=== PATIENT | male | born 1935 | race Caucasian/White ===

== ENCOUNTER → 2017-02-26 | Outpatient (CLI) | payer MEDICARE ==
[2017-02-26 08:56] LABS: Blood Urea Nitrogen 16 mg/dL (9-20); Non-African American GFR(MDRD) >60 (>60 ml/min/1.73 sqM)
--- NOTE | 2017-02-26 11:44 | CT ---
EXAMINATION TYPE: CT chest w con DATE OF EXAM: 02/26/2017 9:18 AM COMPARISON: NONE HISTORY: 81-year-old male with abnormal lung findings TECHNIQUE: Contiguous axial scanning of the chest after the administration of 100 mL of Omnipaque 300 . Coronal/sagittal reconstructions performed. CT DLP: 411.6mGycm. Automatic exposure control utilized for a dose reduction. FINDINGS: The heart is upper limits of normal in size without pericardial effusion. Extensive coronary vessel c alcifications are present and are a marker for coronary artery disease. There is tortuosity of the thoracic aorta with ectasia of the ascending aorta 3.8 cm. Variant direct takeoff of the left vertebral artery directly from the aortic arch with atherosclerotic changes mildl y narrowing the origin of the left subclavian artery. There is aneurysm of the upper descending thora cic aorta at 3.7 cm and ectasia of the distal descending thoracic aorta at 2.8 cm. Large caliber to the main right and left pulmonary arteries at 2.8 and 2.5 cm, respectively. Scattered nonenlarged couple borderline-enlarged mediastinal lymph nodes measure up to 1 cm in the le ft tracheobronchial angle and 1.2 cm subcarinal region and are probably reactive/post inflammatory. A calcified right tracheobronchial angle and right hilar lymph node compatible with prior granulomatou s disease. Visualized lungs show moderate centrilobular emphysema. Chronic appearing interstitial changes in the subpleural regions of the mid and lower lungs. No consolidation or pleural effusion. Some patchy are as of groundglass and subpleural microcystic change are also noted. No consolidation or pleural effus ion. Visualized upper abdomen shows multiple hypodense lesions within the kidneys measuring up to 4.2 cm o n the right suggestive of cysts. 9 mm gallbladder stone. The gallbladder is collapsed. There appears to be a AAA measuring at least 3.9 cm and only partially visualized. Aneurysm could easily be larger. Bones: No osseous destructive process. IMPRESSION: 1. 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 There are additional subpleural interstitial changes in the mid and lower lungs suggesting a component of interstitial fibrosis as well. 2. Pulmonary arterial hypertension, CAD, and prior granulomatous disease. 3. Ectatic and tortuous thoracic aorta but without aneurysm of the upper descending thoracic aorta at 3.8 cm. 4. Additional partially visualized AAA measuring at least 4.2 cm. This aneurysm could easily be large r. Appropriate follow-up and further evaluation is recommended. 5. Cholelithiasis and renal cysts measuring up to 4.2 cm.
== END | disposition home or self-care (01) ==
LOC: RADCTMAIN 07:51
PROVIDERS: ATTEND Internal Medicine
DX: J43.9 Emphysema, unspecified (principal); I25.10 Atherosclerotic heart disease of native coronary artery without angina pectoris; I27.2 Other secondary pulmonary hypertension
CPT/HCPCS: 82565; 84520; 71260; 36415; Q9967

== ENCOUNTER → 2017-02-27 | Outpatient (CLI) | payer MEDICARE ==
--- NOTE | 2017-02-27 23:00 | MR ---
EXAMINATION TYPE: MR brain wo con DATE OF EXAM: 02/27/2017 7:10 PM COMPARISON: 02/18/2016 HISTORY: 81-year-old male with forgetfulness, other amnesia. TECHNIQUE: Multiplanar, multisequence images of the brain and brainstem were acquired without IV con trast. Diffusion weighted imaging is performed. FINDINGS: No evidence for acute infarction, hemorrhage, mass, mass effect, midline shift, herniation, effacemen t of basal cisterns, or extra-axial fluid collection. There is no hydrocephalus. There is moderate generalized supratentorial volume loss with secondary to lcal prominence. Major intracranial flow voids are intact. T2/FLAIR weighted sequences continues to show moderate scattered burden of T2 bright white matter catia nge with approximately 30 subcortical, periventricular, deep white matter foci in the left cerebral h emisphere and slightly less on the right. Midline structures demonstrate normal morphology. The craniocervical junction is normal. Stable 7 mm round hyperintense focus within the left parietal calvarium. This could represent a promi nent arachnoid granulation or a small hemangioma. There is moderate mucosal thickening within the ethmoid air cells and frontal sinuses and mild within the maxillary sinuses. Leftward nasal septal deviation. Globes are intact. IMPRESSION: 1. Similar moderate generalized atrophy and moderate scattered burden of T2 bright white matter saul e. This is nonspecific but likely relates to chronic small vessel ischemic disease. 2. No acute intracranial abnormality seen. 3. Moderate chronic paranasal sinus disease.
== END | disposition home or self-care (01) ==
LOC: RADMRIMAIN 18:17
PROVIDERS: ATTEND Internal Medicine
DX: G31.9 Degenerative disease of nervous system, unspecified (principal); R90.82 White matter disease, unspecified
CPT/HCPCS: 70551

== ENCOUNTER → 2017-03-22 | Outpatient (CLI) | payer MEDICARE ==
--- NOTE | 2017-03-22 11:36 | US ---
EXAMINATION TYPE: US abdomen complete DATE OF EXAM: 03/22/2017 9:02 AM COMPARISON: NONE CLINICAL HISTORY: 81-year-old male K80.20 Calculus of Gallbladder. TECHNIQUE: Multiple sonographic images of the abdomen are obtained. FINDINGS: Liver Length: 13.1 cm Gallbladder Wall: 0.3 cm CBD: 0.5 cm Spleen: 12.7 cm Right Kidney: 8.8 x 3.9 x 4.2 cm Left Kidney: 11.2 x 5.1 x 6.7 cm Pancreas: not seen due to bowel gas Liver: limited left lobe due to bowel gas and intercostal imaging appears wnl Gallbladder: Single mobile 1.1 cm calculus seen within. No abnormal bladder distention, wall thickeni ng, or pericholecystic fluid. Evidence for sonographic Simmons's sign: no CBD: wnl Spleen: wnl Right Kidney: No hydronephrosis. Asymmetrically smaller in size with a 4.7cm simple cyst seen medial ly Left Kidney: No hydronephrosis. There is a 2.0 cm cyst at the midpole. Just below also within the mid pole, there is a cortically based 1 cm hypoechoic lesion that shows internal echoes. Upper IVC: wnl Abd Aorta: There is a 6 cm long segment of infrarenal abdominal aortic aneurysm with a caliber up to 5.4 cm. Some crescentic plaque is noted within. The right common iliac artery is ectatic at 1.8 cm. IMPRESSION: 1. Cholelithiasis without acute cholecystitis. 2. A 5.4 cm AAA for which vascular surgery consultation is recommended. 3. A simple cyst within each kidney measuring up to 4.7 cm. However, there is a 1 cm hypoechoic lesio n in the left midpole which is indeterminate. A complicated cyst is possible. Recommend 6 month follo w-up renal ultrasound to exclude an early small solid mass.
== END | disposition home or self-care (01) ==
LOC: RADUSWWP 08:19
PROVIDERS: ATTEND Internal Medicine
DX: K80.20 Calculus of gallbladder without cholecystitis without obstruction (principal); N28.1 Cyst of kidney, acquired; N28.9 Disorder of kidney and ureter, unspecified; Z98.890 Other specified postprocedural states
CPT/HCPCS: 76700

== ENCOUNTER → 2017-05-10 | Outpatient (CLI) | payer MEDICARE ==
[2017-05-10 14:27] LABS: Basophils % (A) 0 %; CH 30.5; CHCM 34.3; Eosinophils # (A) 0.2 k/uL (0-0.7); Eosinophils % (A) 2 %; HCT 44.1 % (39.0-53.0); HDW 2.53; HGB 15.3 gm/dL (13.0-17.5); Luc # (Auto) 0.18; Luc % (Auto) 3; Lymphocytes # (A) 1.7 k/uL (1.0-4.8); Lymphocytes % (A) 24 %; MCH 30.9 pg (25.0-35.0); MCHC 34.6 g/dL (31.0-37.0); MCV 89.2 fL (80.0-100.0); Mean Platelet Volume 7.5; Monocytes # (A) 0.5 k/uL (0-1.0); Monocytes % (A) 7 %; Neutrophils # (A) 4.5 k/uL (1.3-7.7); Neutrophils % (A) 64 %; RBC 4.94 m/uL (4.30-5.90); RDW 13.8 % (11.5-15.5); WBC 7.1 k/uL (3.8-10.6); WBC (Perox) 7.04
[2017-05-10 14:29] LABS: INR 1.1 (<1.1); Partial Thromboplastin Time 25.9 sec (22.0-30.0); Prothrombin Time 11.1 sec (9.0-12.0)
== END ==
LOC: LABWHC1 13:31
PROVIDERS: ATTEND Internal Medicine
DX: T81.89XD Other complications of procedures, not elsewhere classified, subsequent encounter (principal)
CPT/HCPCS: 36415; 85025; 85610; 85730

== ENCOUNTER 2017-05-19 12:55 | Observation (INO) | payer MEDICARE ==
--- NOTE | 2017-05-19 13:18 | ED ---
General Adult HPI - General Chief complaint: Chest Pain Stated complaint: Chest Pain Time Seen by Provider: 05/19/17 13:10 Source: patient, RN notes reviewed, old records reviewed Mode of arrival: wheelchair Limitations: no limitations - History of Present Illness Initial comments: This is a 82-year-old male to the ER for evaluation. Patient presents today for reevaluation of chest pain, anterior having is having a sinus chest. No shows retinal diaphoresis. Patient has high blood pressure history and history of smoking. No prior history of heart disease heart catheterization about 5 years ago which he states had no intervention. Patient was intravaginal sick contacts no cough congestion or fevers. - Related Data Home Medications Medication Instructions Recorded Confirmed Aspirin EC [Ecotrin Low Dose] 81 mg PO DAILY 05/19/17 05/19/17 Finasteride [Proscar] 5 mg PO DAILY 05/19/17 05/19/17 Lisinopril [Zestril] 5 mg PO BID 05/19/17 05/19/17 Memantine [Namenda] 10 mg PO BID 05/19/17 05/19/17 Omeprazole 20 mg PO DAILY 05/19/17 05/19/17 Simvastatin [Zocor] 40 mg PO HS 05/19/17 05/19/17 Tamsulosin HCl [Flomax] 0.4 mg PO DAILY 05/19/17 05/19/17 Allergies Allergy/AdvReac Type Severity Reaction Status Date / Time No Known Allergies Allergy Verified 05/19/17 13:38 Review of Systems ROS Statement: Those systems with pertinent positive or pertinent negative responses have been documented in the HPI. ROS Other: All systems not noted in ROS Statement are negative. Past Medical History Past Medical History: Cancer, Hyperlipidemia, Hypertension History of Any Multi-Drug Resistant Organisms: None Reported Past Surgical History: Bowel Resection, Prostate Surgery Past Psychological History: No Psychological Hx Reported Smoking Status: Current every day smoker Past Alcohol Use History: Daily Past Drug Use History: None Reported General Exam Limitations: no limitations General appearance: alert, in no apparent distress Head exam: Present: atraumatic, normocephalic, normal inspection Eye exam: Present: normal appearance, PERRL, EOMI. Absent: scleral icterus, conjunctival injection, periorbital swelling ENT exam: Present: normal exam, mucous membranes moist Neck exam: Present: normal inspection. Absent: tenderness, meningismus, lymphadenopathy Respiratory exam: Present: normal lung sounds bilaterally. Absent: respiratory distress, wheezes, rales, rhonchi, stridor Cardiovascular Exam: Present: regular rate, normal rhythm, normal heart sounds. Absent: systolic murmur, diastolic murmur, rubs, gallop, clicks GI/Abdominal exam: Present: soft, normal bowel sounds. Absent: distended, tenderness, guarding, rebound, rigid Extremities exam: Present: normal inspection, full ROM, normal capillary refill. Absent: tenderness, pedal edema, joint swelling, calf tenderness Back exam: Present: normal inspection Neurological exam: Present: alert, oriented X3, CN II-XII intact Psychiatric exam: Present: normal affect, normal mood Skin exam: Present: warm, dry, intact, normal color. Absent: rash Course Vital Signs 05/19/17 05/19/17 05/19/17 13:04 13:40 14:09 Temperature 98.0 F Pulse Rate 64 59 L 61 Respiratory 20 18 18 Rate Blood Pressure 123/82 130/73 130/75 O2 Sat by Pulse 99 97 94 L Oximetry - Reevaluation(s) Reevaluation #1: 05/19/17 14:47 Patient remains a chest pain at this time EKG Findings - EKG Comments: EKG Findings:: EKG shows sinus bradycardia rate 56, PA 136, QRS 156, QTC 420 Medical Decision Making - Medical Decision Making 82 mailed ER for evaluation of chest pain. Anterior chest pain and heaviness. Occurred while activity, initially up yesterday that resolved and has persisted today. No nausea vomiting diarrhea no fever diaphoresis. Patient still chest pain this time, patient scheduled for surgery for abdominal aneurysm and cardiac clearance. Patient is no prior episodes of chest pain or cardiac evaluation. Patient does have high blood pressure and high cholesterol, does smoke, patient is initial EKG and troponin are negative, will be admitted for cardiac observation - Lab Data Result diagrams: 05/19/17 13:25 05/19/17 13:25 Lab Results 05/19/17 05/19/17 05/19/17 Range/Units 13:25 13:25 13:25 WBC 7.3 (3.8-10.6) k/uL RBC 4.86 (4.30-5.90) m/uL Hgb 15.4 (13.0-17.5) gm/dL Hct 44.5 (39.0-53.0) % MCV 91.4 (80.0-100.0) fL MCH 31.6 (25.0-35.0) pg MCHC 34.6 (31.0-37.0) g/dL RDW 15.2 (11.5-15.5) % Plt Count 161 (150-450) k/uL Neutrophils % 65 % Lymphocytes % 24 % Monocytes % 6 % Eosinophils % 3 % Basophils % 1 % Neutrophils # 4.7 (1.3-7.7) k/uL Lymphocytes # 1.8 (1.0-4.8) k/uL Monocytes # 0.4 (0-1.0) k/uL Eosinophils # 0.2 (0-0.7) k/uL Basophils # 0.1 (0-0.2) k/uL PT (9.0-12.0) sec INR (<1.2) APTT (22.0-30.0) sec Sodium 141 (137-145) mmol/L Potassium 4.4 (3.5-5.1) mmol/L Chloride 105 (98-107) mmol/L Carbon Dioxide 24 (22-30) mmol/L Anion Gap 12 mmol/L BUN 11 (9-20) mg/dL Creatinine 0.83 (0.66-1.25) mg/dL Est GFR (MDRD) Af Amer >60 (>60 ml/min/1.73 sqM) Est GFR (MDRD) Non-Af >60 (>60 ml/min/1.73 sqM) Glucose 77 (74-99) mg/dL Calcium 9.4 (8.4-10.2) mg/dL Magnesium 1.8 (1.6-2.3) mg/dL Total Bilirubin 0.4 (0.2-1.3) mg/dL AST 25 (17-59) U/L ALT 31 (21-72) U/L Alkaline Phosphatase 69 (38-126) U/L Total Creatine Kinase 74 (55-170) U/L CK-MB (CK-2) 2.5 H* (0.0-2.4) ng/mL CK-MB (CK-2) Rel Index 3.4 Troponin I <0.012 (0.000-0.034) ng/mL NT-Pro-B Natriuret Pep pg/mL Total Protein 7.3 (6.3-8.2) g/dL Albumin 4.1 (3.5-5.0) g/dL Lipase 100 (23-300) U/L 05/19/17 05/19/17 Range/Units 13:25 13:25 WBC (3.8-10.6) k/uL RBC (4.30-5.90) m/uL Hgb (13.0-17.5) gm/dL Hct (39.0-53.0) % MCV (80.0-100.0) fL MCH (25.0-35.0) pg MCHC (31.0-37.0) g/dL RDW (11.5-15.5) % Plt Count (150-450) k/uL Neutrophils % % Lymphocytes % % Monocytes % % Eosinophils % % Basophils % % Neutrophils # (1.3-7.7) k/uL Lymphocytes # (1.0-4.8) k/uL Monocytes # (0-1.0) k/uL Eosinophils # (0-0.7) k/uL Basophils # (0-0.2) k/uL PT 10.9 (9.0-12.0) sec INR 1.1 (<1.2) APTT 24.6 (22.0-30.0) sec Sodium (137-145) mmol/L Potassium (3.5-5.1) mmol/L Chloride (98-107) mmol/L Carbon Dioxide (22-30) mmol/L Anion Gap mmol/L BUN (9-20) mg/dL Creatinine (0.66-1.25) mg/dL Est GFR (MDRD) Af Amer (>60 ml/min/1.73 sqM) Est GFR (MDRD) Non-Af (>60 ml/min/1.73 sqM) Glucose (74-99) mg/dL Calcium (8.4-10.2) mg/dL Magnesium (1.6-2.3) mg/dL Total Bilirubin (0.2-1.3) mg/dL AST (17-59) U/L ALT (21-72) U/L Alkaline Phosphatase (38-126) U/L Total Creatine Kinase (55-170) U/L CK-MB (CK-2) (0.0-2.4) ng/mL CK-MB (CK-2) Rel Index Troponin I (0.000-0.034) ng/mL NT-Pro-B Natriuret Pep 78 pg/mL Total Protein (6.3-8.2) g/dL Albumin (3.5-5.0) g/dL Lipase (23-300) U/L - Radiology Data Radiology results: report reviewed (Chest x-ray is negative for acute disease), image reviewed Critical Care Time Critical Care Time: Yes Total Critical Care Time: 31 Disposition Clinical Impression: Chest pain Disposition: ADMITTED IP TO THIS HOSP Condition: Undetermined Instructions: Chest Pain (ED) Referrals: Percy Caldwell MD [Primary Care Provider] - 1-2 days
[2017-05-19 13:36] LABS: Basophils # (A) 0.1 k/uL (0-0.2); Basophils % (A) 1 %; CH 31.6; CHCM 34.7; Eosinophils # (A) 0.2 k/uL (0-0.7); Eosinophils % (A) 3 %; HCT 44.5 % (39.0-53.0); HDW 2.54; HGB 15.4 gm/dL (13.0-17.5); Luc # (Auto) 0.15; Luc % (Auto) 2; Lymphocytes # (A) 1.8 k/uL (1.0-4.8); Lymphocytes % (A) 24 %; MCH 31.6 pg (25.0-35.0); MCHC 34.6 g/dL (31.0-37.0); MCV 91.4 fL (80.0-100.0); Mean Platelet Volume 8.1; Monocytes # (A) 0.4 k/uL (0-1.0); Monocytes % (A) 6 %; Neutrophils # (A) 4.7 k/uL (1.3-7.7); Neutrophils % (A) 65 %; RBC 4.86 m/uL (4.30-5.90); RDW 15.2 % (11.5-15.5); WBC 7.3 k/uL (3.8-10.6); WBC (Perox) 6.65
[2017-05-19 13:46] LABS: ALT 31 U/L (21-72); AST 25 U/L (17-59); Alkaline Phosphatase 69 U/L (38-126); Anion Gap 12 mmol/L; Blood Urea Nitrogen 11 mg/dL (9-20); Calcium 9.4 mg/dL (8.4-10.2); Carbon Dioxide 24 mmol/L (22-30); Chloride 105 mmol/L (98-107); Glucose 77 mg/dL (74-99); INR 1.1 (<1.2); Magnesium 1.8 mg/dL (1.6-2.3); Non-African American GFR(MDRD) >60 (>60 ml/min/1.73 sqM); Partial Thromboplastin Time 24.6 sec (22.0-30.0); Potassium 4.4 mmol/L (3.5-5.1); Prothrombin Time 10.9 sec (9.0-12.0); Sodium 141 mmol/L (137-145); Total Bilirubin 0.4 mg/dL (0.2-1.3); Total Protein 7.3 g/dL (6.3-8.2)
[2017-05-19 13:58] LABS: Creatine Kinase 74 U/L (55-170)
--- NOTE | 2017-05-19 14:03 | XR ---
EXAMINATION TYPE: XR chest 2V DATE OF EXAM: 05/19/2017 COMPARISON: NONE HISTORY: Chest pain TECHNIQUE: Frontal and lateral views of the chest are obtained. FINDINGS: There is coarsening of interstitial markings. Heart size is normal. Thoracic aorta is athe romatous. There is no pleural effusion. Bony thorax is intact. There are chest leads. IMPRESSION: Pulmonary fibrosis. No heart failure.
[2017-05-19 14:11] LABS: Troponin I <0.012 ng/mL (0.000-0.034)
[2017-05-19 14:13] LABS: Creatine Kinase MB 2.5 ng/mL (0.0-2.4)
[2017-05-19] MEDS ORDERED: NITROGLYCERIN OINT 1 INCH/GM PACKET TOPICAL STA (14:33)
[2017-05-19] MEDS ORDERED: SODIUM CHLORIDE 0.9% 1,000 ML IV SCH (14:45)
[2017-05-19] MEDS ORDERED: NITROGLYCERIN SL TABS 0.4 MG TAB SUBLINGUAL PRN (14:45)
[2017-05-19] MEDS ORDERED: HEPARIN SODIUM,PORCINE 5,000 UNIT/ML 1 ML VIAL IV PRN (14:45)
[2017-05-19] MEDS ORDERED: HEPARIN SODIUM,PORCINE/D5W PMX 25,000 UNIT in DEXTROSE/WATER 1 500ML.BAG IV SCH (14:45)
[2017-05-19] MEDS ORDERED: HEPARIN SODIUM,PORCINE 5,000 UNIT/ML 1 ML VIAL IV ONE (14:45)
[2017-05-19] MEDS ORDERED: ASPIRIN 81 MG PO STA (14:45)
[2017-05-19] MEDS ORDERED: FINASTERIDE 5 MG TAB PO SCH (21:00)
[2017-05-19] MEDS ORDERED: ATORVASTATIN 20 MG TAB PO SCH (21:00)
[2017-05-19] MEDS ORDERED: LISINOPRIL 5 MG TAB PO SCH (21:00)
[2017-05-19] MEDS ORDERED: MEMANTINE 10 MG TAB PO SCH (21:00)
[2017-05-19 21:31] LABS: Creatine Kinase 62 U/L (55-170)
[2017-05-19 21:44] LABS: Creatine Kinase MB 2.1 ng/mL (0.0-2.4); Troponin I <0.012 ng/mL (0.000-0.034)
[2017-05-20 00:54] VITALS: RESP 18
[2017-05-20 02:36] LABS: Creatine Kinase 49 U/L (55-170)
[2017-05-20 02:49] LABS: Creatine Kinase MB 1.6 ng/mL (0.0-2.4); Troponin I <0.012 ng/mL (0.000-0.034)
[2017-05-20 05:17] VITALS: PULSE 80
[2017-05-20 06:52] LABS: Mean Platelet Volume 7.8
[2017-05-20 07:16] LABS: Cholesterol 117 mg/dL (<200); HDL Cholesterol 42 mg/dL (40-60)
[2017-05-20] MEDS ORDERED: PANTOPRAZOLE 40 MG TABLET PO SCH (07:30)
[2017-05-20 08:22] VITALS: BP 120/46; TEMP 97.8
[2017-05-20] MEDS ORDERED: ASPIRIN 325 MG TAB PO SCH (09:00)
[2017-05-20] MEDS ORDERED: ATORVASTATIN 80 MG TAB PO SCH (09:00)
[2017-05-20] MEDS ORDERED: TAMSULOSIN 0.4 MG CAP.ER.24H PO SCH (09:00)
--- NOTE | 2017-05-20 09:29 | P.CRDCN ---
<Tsering Gill E - Last Filed: 05/20/17 09:20> History of Present Illness Consult date: 05/20/17 Requesting physician: Viki Cleaning Consult reason: chest pain Chief complaint: Chest pain History of present illness: This is an 82-year-old gentleman with history of hypertension, hyperlipidemia, short-term memory loss, nicotine dependence, abdominal aortic aneurysm, who presents to the hospital with symptoms of chest discomfort. History was obtained from both the patient and his . Patient has just returned from a 1700 mile motorcycle a trip, apparently over the past 2-3 days has been experiencing intermittent chest discomfort which the patient describes as an ache in his chest. He denies any associated shortness of breath, no diaphoresis or nausea. He is unsure exactly how long each episode lasts. Patient is scheduled to see a central office repairer at [facility] in early May , they plan on doing surgery on his abdominal aortic aneurysm according to the patient. EKG on admission here shows a sinus bradycardia with a right bundle branch block pattern. Chest x-ray reveals pulmonary fibrosis with no evidence of congestive heart failure. Blood pressure on arrival 123/80 with a heart rate in the 60s, temperature 98.0, 99% on room air. CBC normal. Potassium 4.4 , BUN 11, creatinine 0.8, troponins negative 3. Magnesium 1.8. Cholesterol 117, triglycerides 68, LDL 61, HDL 42. Patient is currently on IV heparin, he is pain-free at this time. Past Medical History Past Medical History: Cancer, Hyperlipidemia, Hypertension, Sleep Apnea/CPAP/ BIPAP Additional Past Medical History / Comment(s): wears CPAP at night History of Any Multi-Drug Resistant Organisms: None Reported Past Surgical History: Bowel Resection, Prostate Surgery Past Psychological History: No Psychological Hx Reported Smoking Status: Current every day smoker Past Alcohol Use History: Daily Past Drug Use History: None Reported - Past Family History Father History Unknown: Yes Family Medical History: CVA/TIA Mother Family Medical History: CVA/TIA Medications and Allergies Home Medications Medication Instructions Recorded Confirmed Type Aspirin EC [Ecotrin Low Dose] 81 mg PO DAILY 05/19/17 05/19/17 History Finasteride [Proscar] 5 mg PO DAILY 05/19/17 05/19/17 History Lisinopril [Zestril] 5 mg PO BID 05/19/17 05/19/17 History Memantine [Namenda] 10 mg PO BID 05/19/17 05/19/17 History Omeprazole 20 mg PO DAILY 05/19/17 05/19/17 History Simvastatin [Zocor] 40 mg PO HS 05/19/17 05/19/17 History Tamsulosin HCl [Flomax] 0.4 mg PO DAILY 05/19/17 05/19/17 History Allergies Allergy/AdvReac Type Severity Reaction Status Date / Time No Known Allergies Allergy Verified 05/19/17 13:38 Physical Exam Vitals: Vital Signs Temp Pulse Pulse Resp BP BP Pulse Ox 05/20/17 08:16 97.8 F 63 16 120/46 94 L 05/20/17 04:00 97.2 F L 80 17 115/65 94 L 05/20/17 00:00 97.7 F 77 18 107/60 92 L 05/19/17 20:00 97.1 F L 81 17 127/69 92 L 05/19/17 15:16 97.9 F 66 16 136/64 93 L 05/19/17 15:13 97.1 F L 61 18 126/78 96 05/19/17 14:09 61 18 130/75 94 L 05/19/17 13:40 59 L 18 130/73 97 05/19/17 13:04 98.0 F 64 20 123/82 99 Intake and Output 05/19/17 05/20/17 05/20/17 22:59 06:59 14:59 Intake Total 133.032 290 Output Total 0 400 0 Balance 133.032 -110 0 Intake: IV 230 Heparin Sodium,Porcine/ 230 D5w Pmx 25,000 unit In Dextrose/Water 1 500ml. bag @ 12 UNITS/KG/HR 19. 05 mls/hr IV .Q24H JENNY Rx #:[id number] Intake, IV Titration 133.032 60 Amount Heparin Sodium,Porcine/ 133.032 D5w Pmx 25,000 unit In Dextrose/Water 1 500ml. bag @ 12 UNITS/KG/HR 19. 05 mls/hr IV .Q24H JENNY Rx #:[id number] Sodium Chloride 0.9% 1, 60 000 ml @ 20 mls/hr IV . Q24H JENNY Rx#:[id number] Output: Urine 0 400 0 Other: Voiding Method Toilet Toilet Toilet # Voids 1 Weight 79.3 kg PHYSICAL EXAMINATION: HEENT: Head is atraumatic, normocephalic. Pupils equal, round. Neck is supple. There is no elevated jugular venous pressure. HEART EXAMINATION: Heart S1, S2 normal. No murmur or gallop heard. CHEST EXAMINATION: Lungs are clear to auscultation and precussion. No chest wall tenderness is noted on palpation or with deep breathing. ABDOMEN: Soft, nontender. Bowel sounds are heard. No organomegaly noted. EXTREMITIES: 1+ peripheral pulses with no evidence of peripheral edema and no calf tenderness noted]. NEUROLOGIC [patient is awake, alert and oriented -3.] . Results 05/20/17 06:06 05/19/17 13:25 Cardiac Enzymes 05/19/17 05/19/17 05/19/17 Range/Units 13:25 13:25 20:22 AST 25 (17-59) U/L CK-MB (CK-2) 2.5 H* 2.1 (0.0-2.4) ng/mL Troponin I <0.012 <0.012 (0.000-0.034) ng/mL 05/20/17 Range/Units 01:58 AST (17-59) U/L CK-MB (CK-2) 1.6 (0.0-2.4) ng/mL Troponin I <0.012 (0.000-0.034) ng/mL Coagulation 05/19/17 05/19/17 05/20/17 Range/Units 13:25 20:22 01:58 PT 10.9 (9.0-12.0) sec APTT 24.6 37.8 H 41.5 H (22.0-30.0) sec 05/20/17 Range/Units 06:06 PT (9.0-12.0) sec APTT 47.5 H (22.0-30.0) sec Lipids 05/20/17 Range/Units 06:06 Triglycerides 68 (<150) mg/dL Cholesterol 117 (<200) mg/dL HDL Cholesterol 42 (40-60) mg/dL CBC 05/19/17 05/20/17 Range/Units 13:25 06:06 WBC 7.3 (3.8-10.6) k/uL RBC 4.86 (4.30-5.90) m/uL Hgb 15.4 (13.0-17.5) gm/dL Hct 44.5 (39.0-53.0) % Plt Count 161 142 L (150-450) k/uL Comprehensive Metabolic Panel 05/19/17 Range/Units 13:25 Sodium 141 (137-145) mmol/L Potassium 4.4 (3.5-5.1) mmol/L Chloride 105 (98-107) mmol/L Carbon Dioxide 24 (22-30) mmol/L BUN 11 (9-20) mg/dL Creatinine 0.83 (0.66-1.25) mg/dL Glucose 77 (74-99) mg/dL Calcium 9.4 (8.4-10.2) mg/dL AST 25 (17-59) U/L ALT 31 (21-72) U/L Alkaline Phosphatase 69 (38-126) U/L Total Protein 7.3 (6.3-8.2) g/dL Albumin 4.1 (3.5-5.0) g/dL Current Medications Generic Name Dose Route Start Last Admin Trade Name Freq PRN Reason Stop Dose Admin Aspirin 325 mg 05/20/17 09:00 Aspirin PO DAILY JENNY Atorvastatin Calcium 20 mg 05/19/17 21:00 05/19/17 20:53 Lipitor PO 20 mg HS JENNY Administration Finasteride 5 mg 05/19/17 21:00 05/19/17 20:53 Proscar PO 5 mg HS JENNY Administration Heparin Sodium (Porcine) 0 unit 05/19/17 14:45 Heparin IV Q6HR PRN Low PTT Protocol Heparin Sodium/Dextrose 25,000 500 mls @ 19.05 mls/hr 05/19/17 14:45 22:11 unit/ IV Solution IV 15 units/kg/hr .Q24H JENNY 23.81 mls/hr Protocol Titration 12 UNITS/KG/HR Sodium Chloride 1,000 mls @ 20 mls/hr 05/19/17 14:45 05/19/17 15:12 Saline 0.9% IV 20 mls/hr .Q24H JENNY Administration Lisinopril 5 mg 05/19/17 21:00 05/19/17 20:53 Zestril PO 5 mg BID JENNY Administration Memantine 10 mg 05/19/17 21:00 05/19/17 20:53 Namenda PO 10 mg BID JENNY Administration Nitroglycerin 0.4 mg 05/19/17 14:45 Nitrostat SUBLINGUAL Q5M PRN Chest Pain Pantoprazole Sodium 40 mg 05/20/17 07:30 Protonix PO AC-BRKFST [facility] Tamsulosin HCl 0.4 mg 05/20/17 09:00 Flomax PO DAILY JENNY Intake and Output 05/19/17 05/20/17 05/20/17 22:59 06:59 14:59 Intake Total 133.032 290 Output Total 0 400 0 Balance 133.032 -110 0 Intake: IV 230 Heparin Sodium,Porcine/ 230 D5w Pmx 25,000 unit In Dextrose/Water 1 500ml. bag @ 12 UNITS/KG/HR 19. 05 mls/hr IV .Q24H JENNY Rx #:[id number] Intake, IV Titration 133.032 60 Amount Heparin Sodium,Porcine/ 133.032 D5w Pmx 25,000 unit In Dextrose/Water 1 500ml. bag @ 12 UNITS/KG/HR 19. 05 mls/hr IV .Q24H JENNY Rx #:[id number] Sodium Chloride 0.9% 1, 60 000 ml @ 20 mls/hr IV . Q24H JENNY Rx#:[id number] Output: Urine 0 400 0 Other: Voiding Method Toilet Toilet Toilet # Voids 1 Weight 79.3 kg 05/20/17 06:06 05/19/17 13:25 EKG Interpretations (text) EKG shows a sinus bradycardia with a right bundle branch block pattern and nonspecific ST-T wave changes Assessment and Plan Plan: Assessment and plan #1 symptoms of intermittent chest discomfort for 2-3 day duration. Troponins negative 3. EKG shows a sinus bradycardia with right bundle branch block pattern. #2 hypertension #3 hyperlipidemia #4 nicotine dependence #5 abdominal aortic aneurysm #6 short term memory loss Plan We will obtain an echocardiogram with Doppler study. Obtain d-dimer. Further recommendations to follow. DNP note has been reviewed, I agree with a documented findings and plan of care. Patient was seen and examined. <Anam Renner - Last Filed: 06/28/17 13:31> Results 05/20/17 06:06 05/19/17 13:25 05/20/17 06:06 05/19/17 13:25
[2017-05-20] MEDS ORDERED: RX INFO: IV CONTRAST WAS GIVEN 1 EACH MISC MISCELLANE PRN (12:30)
--- NOTE | 2017-05-20 13:22 | HP ---
DATE OF ADMISSION: 05/19/17 CHIEF COMPLAINT: Chest pain. HISTORY OF PRESENT ILLNESS: This 82 -year-old gentleman with a past medical history of hypertension, hyperlipidemia, sleep apnea, history of CPAP, history of prostate surgery, history of bowel resection, being followed by Dr. Percy Caldwell in the outpatient setting is having chest pains. Today, the pain was felt in the anterior part of the chest. The patient also had history of high blood pressure. The patient was also felt in the left side which was rather sharp in character without much radiation or associated symptoms. The patient came to [facility] and admitted to the hospital for further evaluation and treatment. There is no history of any fever, rigors or chills. No history of headache, loss of consciousness or seizures. PAST MEDICAL HISTORY: Hypertension, hyperlipidemia, sleep apnea, bowel resection. Medications prior to admission include home medications: 1. Zocor 40 mg q.h.s. 2. Zestril 5 mg po b.i.d. 3. Flomax 0.4 mg daily. 4. Omeprazole 20 mg po daily. 5. Namenda 10 mg po b.i.d. 6. Proscar 5 mg po daily. 7. Ecotrin 81 mg po daily. ALLERGIES: None. FAMILY HISTORY: History of CVA, TIA in the family. SOCIAL HISTORY: History of smoking. No current history of alcohol intake. REVIEW OF SYSTEMS: ENT: No diminished vision. No diminished hearing. Cardiovascular: As mentioned earlier. Respiratory: As mentioned earlier. GI: No nausea or vomiting. No diarrhea. : No dysuria. Nervous system: No numbness or weakness. Allergy/Immunology: No asthma or hayfever. Musculoskeletal: As mentioned earlier . Hematology/Oncology: As mentioned earlier. Constitutional: As mentioned earlier. Dermatology: Negative. Rheumatology: Negative. Psychiatry: As mentioned earlier. PHYSICAL EXAMINATION: Alert and oriented times three. Pulse 81. Blood pressure 120/69. Respiratory rate 17, temperature 97.1. Pulse ox 92% on room air. HEENT: Conjunctivae normal. NECK: No JVD. Cardiovascular: S1, S2 muffled. Respiratory: Breath sounds diminished at the bases. No rhonchi. No crackles. Abdomen is soft. Nontender. No mass palpable. Legs: No edema. No swelling. Nervous system: Higher functions as mentioned earlier. Moves all four limbs. No focal motor deficits. Lymphatics: No lymph nodes palpable in the neck, axillae or groin. SKIN: No ulcer, rash or bleeding. LABS: CBC within normal limits. CMP within normal limits except CKMB 2.5. Troponins are negative. The EKG shows right bundle branch block. Chest x-ray pulmonary fibrosis. ASSESSMENT: 1. Chest pain, possible unstable angina. 2. Right bundle branch block on the EKG. 3. Pulmonary fibrosis on the chest x-ray. 4. History of hypertension. 5. History of hyperlipidemia. 6. History of CPAP. 7. History of sleep apnea. 8. History of nicotine dependence. 9. History of colon cancer. 10. History of benign prostatic hypertrophy. 11. History of colectomy. RECOMMENDATIONS AND DISCUSSION: In this 79 -year-old gentleman who presented with multiple complex medical issues, we will monitor the patient closely, continue the current medications. Continue symptomatic treatment. Otherwise, unstable angina protocol. Cardiology consultation. Possible stress test. Guarded prognosis because of multiple complex medical issues. Further recommendations to follow. A copy of dictation being forwarded to Dr. Caldwell who is the primary physician. Medication reconciliation also done. See orders for further details. MTDD
--- NOTE | 2017-05-20 13:35 | CT ---
EXAMINATION TYPE: CT angio chest DATE OF EXAM: 05/20/2017 1:25 PM COMPARISON: Previous study dated 02/26/2017 HISTORY: Chest pain with mild shortness of breath. CT DLP: 643 mGycm Automated exposure control for dose reduction was used. CONTRAST: CTA scan of the thorax is performed with IV Contrast, patient injected with 100 mL of Omnipaque 350, pulmonary embolism protocol. . FINDINGS: There are diffuse emphysematous changes throughout the lungs. There is interstitial fibrosi s in the lower lobes bilaterally. There is no significant axillary adenopathy. There is some shotty mediastinal adenopathy. There is no significant hilar adenopathy. There is no evidence of pulmonary embolus. The aortic root is dilated measuring 4 cm. At the level of the proximal arch the aorta is dilated di suring 3.7 cm. At the level of the proximal descending thoracic aorta the aorta is aneurysmal measuri ng 3.7 cm. At the level of the aortic hiatus the aorta is normal in caliber measuring just less than 3 cm. There is no pleural or pericardial fluid. The heart is enlarged. There is a prominent gallstone within the gallbladder. There is a 4.9 cm low attenuating lesion arisi ng from the upper pole of the right kidney. Visualized intra-abdominal structures are otherwise unrem arkable. There is hypertrophic spondylosis within the spine. IMPRESSION: 1. THIS EXAMINATION IS NEGATIVE FOR PULMONARY EMBOLUS. 2. SIGNIFICANT EMPHYSEMATOUS CHANGE WELL INTERSTITIAL FIBROSIS. 3. 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 #4 CARDIOMEGALY. 5. CHOLELITHIASIS. 6. PROBABLE CYST ARISING FROM THE UPPER POLE OF THE RIGHT KIDNEY. 7. DEGENERATIVE CHANGES WITHIN THE SPINE.
--- NOTE | 2017-05-20 13:39 | ECHOF ---
Referral Reason:chest pain MEASUREMENTS -------- HEIGHT: 170.2 cm WEIGHT: 78.9 kg BP: 120/46 RVIDd: 2.9 cm (< 3.3) IVSd: 1.1 cm (0.6 - 1.1) LVIDd: 4.7 cm (3.9 - 5.3) LVPWd: 1.1 cm (0.6 - 1.1) IVSs: 1.5 cm LVIDs: 2.3 cm LVPWs: 1.6 cm LAESV Index (A-L): 19.33 ml/m Ao Diam: 4.1 cm (2.0 - 3.7) AV Cusp: 1.7 cm (1.5 - 2.6) MV EXCURSION: 16.659 mm (> 18.000) MV EF SLOPE: 144 mm/s (70 - 150) EPSS: 1.3 cm MV E Alfredo: 0.65 m/s MV DecT: 307 ms MV A Alfredo: 0.83 m/s MV E/A Ratio: 0.77 AR PHT: 663 ms RAP: 5.00 mmHg RVSP: 38.09 mmHg FINDINGS -------- Resting bradycardia (HR<60bpm). This was a technically adequate study. Overall left ventricular systolic function is normal with, an EF between 60 - 65 %. The right ventricle is normal in size and function. Normal LA size by volume 22+/-6 ml/m2. The right atrium is normal in size. There is mild aortic valve sclerosis. There is [id number] aortic regurgitation. There is no evidence of aortic stenosis. The mitral valve leaflets are mildly thickened. There is trace to mild mitral regurgitation. Trace tricuspid regurgitation present. There is borderline pulmonary hypertension. The right ventricular systolic pressure, as measured by Doppler, is 38.09mmHg. Trace/mild (physiologic) pulmonic regurgitation. The aortic root size is normal. Normal inferior vena cava with normal inspiratory collapse consistent with estimated right atrial pressure of 5 mmHg. The pericardium is normal. There is no pericardial effusion. CONCLUSIONS -------- 1. Resting bradycardia (HR<60bpm). 2. There is borderline pulmonary hypertension. 3. The right ventricular systolic pressure, as measured by Doppler, is 38.09mmHg. 4. Trace/mild (physiologic) pulmonic regurgitation. 5. The aortic root size is normal. 6. There is no pericardial effusion. 7. This was a technically adequate study. 8. Overall left ventricular systolic function is normal with, an EF between 60 - 65 %. 9. Normal LA size by volume 22+/-6 ml/m2. 10. There is mild aortic valve sclerosis. 11. There is bqyz-[id number] aortic regurgitation. 12. The mitral valve leaflets are mildly thickened. 13. There is trace to mild mitral regurgitation. 14. Trace tricuspid regurgitation present. [employer]: Cayden Dee RDCS
--- NOTE | 2017-05-24 08:23 | DS ---
FINAL DIAGNOSES: 1. Chest pain, possible musculoskeletal. Possible gastroesophageal reflux disease. 2. Right bundle branch block on the EKG. 3. Pulmonary fibrosis on the chest x-ray. 4. History of hypertension. 5. History of hyperlipidemia. 6. History of CPAP. 7. History of sleep apnea. 8. History of nicotine dependence. 9. History of colon cancer. 10. History of benign prostatic hypertrophy. 11. History of colectomy. 12. Cholelithiasis. 13. History of abdominal aortic aneurysm. DISCHARGE DISPOSITION: The patient is being discharged in stable condition with guarded prognosis. HISTORY OF PRESENT ILLNESS: This 82 -year-old gentleman admitted to the hospital with chest pain, myocardial infarction ruled out. Stress test was done. The patient also had CT showed negative for pulmonary embolism. Cholelithiasis noted. Otherwise, cardiology saw the patient and recommended the patient to be discharged. On exam, vital signs are stable. Cardiovascular: S1, S2. Abdomen soft. Nervous system: No focal deficits. DISCHARGE MEDICATIONS AND INSTRUCTIONS: 1. Ecotrin 81 mg po daily. 2. Proscar 5 mg po daily. 3. Zestril 5 mg po b.i.d. 4. Namenda 10 mg po b.i.d. 5. Omeprazole 20 mg daily. 6. Zocor 40 mg q.h.s. 7. Flomax 0.4 daily. Follow-up with and Cardiology as recommended and [facility] as recommended. [facility]
== END 2017-05-20 16:35 | disposition home or self-care (01) ==
LOC: EC 12:55 → 6SEL 14:45
PROVIDERS: ADMIT Internal Medicine; ATTEND Hospitalist
DX: R07.89 Other chest pain (principal); I45.10 Unspecified right bundle-branch block; J84.10 Pulmonary fibrosis, unspecified; I10 Essential (primary) hypertension; E78.5 Hyperlipidemia, unspecified; I71.4 Abdominal aortic aneurysm, without rupture; K80.20 Calculus of gallbladder without cholecystitis without obstruction; G47.30 Sleep apnea, unspecified; N40.0 Benign prostatic hyperplasia without lower urinary tract symptoms; F17.200 Nicotine dependence, unspecified, uncomplicated; R41.3 Other amnesia; Z99.89 Dependence on other enabling machines and devices; Z79.82 Long term (current) use of aspirin; Z79.899 Other long term (current) drug therapy; Z85.038 Personal history of other malignant neoplasm of large intestine
CPT/HCPCS: 96374 ×2; 99291 ×2; 36415; 94760; 93005; 93306; 85379; 83880; 80061; 80053; 82550 ×2; 82553 ×2; 83690; 83735; 84484 ×2; 85025; 85049; 85610; 85730 ×2; 71020; 71275; G0378 ×2; S0138; J1644 ×2; Q9967

== ENCOUNTER → 2017-07-30 | Outpatient (CLI) | payer MEDICARE ==
--- NOTE | 2017-07-30 09:04 | MR ---
EXAMINATION TYPE: MR brain wo con DATE OF EXAM: 07/30/2017 COMPARISON: 02/18/2016 and 03/26/2017 HISTORY: cva, tia, memory loss TECHNIQUE: Multiplanar, multisequence images of the brain and brainstem is performed without intravenous contras t. FINDINGS: Diffusion weighted images demonstrate no evidence of a recent infarct or other diffusion ab normality. There is no extra-axial fluid collection. Symmetric prominence of the peripheral sulci an d ventricular system corresponds with age-related atrophy, similar in appearance to the prior exam. A s seen on the prior examination there are numerous foci of T2/FLAIR hyperintense white matter change supratentorially throughout the periventricular and subcortical white matter. There are similar size and number (approximately 30 with left hemispheric lesions slightly greater than right) of white marvin er lesions in comparison to the prior exam of 02/27/2017. Unchanged 7 mm T2 hyperintense focus within the left parietal calvarium likely represents a benign pr ominent arachnoid granulation. Degree of mucosal thickening within the maxillary sinuses, ethmoid sinuses, and frontal sinuses has s lightly increased from the prior exam. Leftward nasal septal deviation remains. Orbits are symmetric and globes are intact. Midline structures demonstrate normal morphology. The craniocervical junction appears within normal limits. IMPRESSION: 1. Unchanged moderate supratentorial generalized cerebral and moderate burden of nonspecific white ma tter changes. Given stability, distribution, and patient's age this most likely represents sequela of nonspecific white matter changes. 2. No evidence of acute infarction. 3. Worsening moderate chronic paranasal sinus disease, most significant in the left frontal sinuses.
== END | disposition home or self-care (01) ==
LOC: RADMRIMAIN 07:53
PROVIDERS: ATTEND Psychiatry & Neurology Neurology
DX: R90.82 White matter disease, unspecified (principal); I69.311 Memory deficit following cerebral infarction; G45.9 Transient cerebral ischemic attack, unspecified
CPT/HCPCS: 70551

== ENCOUNTER 2019-02-18 08:37 | Emergency (ER) | payer MEDICARE ==
[2019-02-18 08:44] VITALS: BP 117/66; PULSE 99; RESP 18; TEMP 98.7
[2019-02-18] MEDS ORDERED: SODIUM CHLORIDE 0.9% 1,000 ML IV ONE (09:03)
[2019-02-18] MEDS ORDERED: DIPH,PERTUS(ACELL)TETVAC-LF 0.5 ML VIAL IM ONE (09:04)
--- NOTE | 2019-02-18 09:10 | ED ---
Fall HPI - General Source: patient, RN notes reviewed, old records reviewed Mode of arrival: ambulatory <Martina Anguiano - Last Filed: 02/18/19 12:36> <Eric Greer - Last Filed: 02/18/19 12:49> - General Chief Complaint: Fall Stated Complaint: Fall, Facial injuyr Time Seen by Provider: 02/18/19 08:52 - History of Present Illness Initial Comments: Patient is an 83-year-old male who presents emergency department today after tripping and falling outside less at 6 PM. Patient reports that his equilibrium felt off causing him to trip and fall. Patient states his equilibrium has been off for the past 2 days. Patient fell he landed on the face, left hand and knees. He has abrasions over the knees, and hand. He has significant swelling over the left hand. Patient's has significant swelling noted over the left eye. He denies any visual changes within the left eye. He reports tenderness around the orbits. Patient states he is not on blood thinners. He denies any chest pain shortness breath or abdominal pain. (Martina Anguiano) - Related Data Home Medications Medication Instructions Recorded Confirmed Finasteride [Proscar] 5 mg PO DAILY 05/19/17 02/18/19 Lisinopril [Zestril] 5 mg PO BID 05/19/17 02/18/19 Memantine [Namenda] 10 mg PO BID 05/19/17 02/18/19 Omeprazole 20 mg PO DAILY 05/19/17 02/18/19 Simvastatin [Zocor] 40 mg PO HS 05/19/17 02/18/19 Tamsulosin HCl [Flomax] 0.4 mg PO DAILY 05/19/17 02/18/19 Previous Rx's Medication Instructions Recorded Erythromycin Ophth Oint [Romycin 1 applic LEFT EYE QID #1 bottle 02/18/19 Ophth Oint] Allergies Allergy/AdvReac Type Severity Reaction Status Date / Time No Known Allergies Allergy Verified 02/18/19 09:57 Review of Systems ROS Other: All systems not noted in ROS Statement are negative. <Martina Anguiano - Last Filed: 02/18/19 12:36> ROS Other: All systems not noted in ROS Statement are negative. <Eric Greer - Last Filed: 02/18/19 12:49> ROS Statement: Those systems with pertinent positive or pertinent negative responses have been documented in the HPI. Past Medical History Past Medical History: Cancer, Dementia, Hyperlipidemia, Hypertension, Sleep A pnea/CPAP/BIPAP Additional Past Medical History / Comment(s): wears CPAP at night, history of colon cancer History of Any Multi-Drug Resistant Organisms: None Reported Past Surgical History: Bowel Resection, Prostate Surgery Past Psychological History: No Psychological Hx Reported Smoking Status: Current every day smoker Past Alcohol Use History: Occasional Past Drug Use History: None Reported - Past Family History Father History Unknown: Yes Family Medical History: CVA/TIA Mother Family Medical History: CVA/TIA <Martina Anguiano - Last Filed: 02/18/19 12:36> General Exam Limitations: no limitations General appearance: alert, in no apparent distress Head exam: Present: atraumatic, normocephalic, normal inspection Eye exam: Present: other (Patient has significant hematoma surrounding the left eye. Eyes swollen shut. When opening the eye. Appears equal and reactive. No conjunctival hemorrhage noted.). Absent: normal appearance ENT exam: Present: normal exam, mucous membranes moist Neck exam: Present: normal inspection. Absent: tenderness, meningismus, lymphadenopathy Respiratory exam: Present: normal lung sounds bilaterally. Absent: respiratory distress, wheezes, rales, rhonchi, stridor Cardiovascular Exam: Present: regular rate, normal rhythm, normal heart sounds. Absent: systolic murmur, diastolic murmur, rubs, gallop, clicks GI/Abdominal exam: Present: soft, normal bowel sounds. Absent: distended, tenderness, guarding, rebound, rigid Extremities exam: Present: normal inspection, full ROM, normal capillary refill. Absent: tenderness, pedal edema, joint swelling, calf tenderness Left Elbow exam: Present: normal inspection, full ROM Forearm Wrist exam: Present: normal inspection, full ROM Hand Wrist exam: Present: tenderness (Patient is tenderness and swelling over the fifth metacarpal.), swelling, laceration (Superficial abrasions and lacerations noted over the tips of the finger. Dried blood noted.). Absent: normal inspection, abrasion Neuro motor exam: Present: wrist extension intact, thumb opposition intact, thumb IP flexion intact, thumb adduction intact Vascular: Present: normal capillary refill Back exam: Present: normal inspection Neurological exam: Present: alert, oriented X3, CN II-XII intact Psychiatric exam: Present: normal affect, normal mood Skin exam: Present: warm, dry, intact, normal color. Absent: rash <Martina Anguiano - Last Filed: 02/18/19 12:36> - General Exam Comments Initial Comments: 83-year-old male. Alert and oriented 3. (Martina Anguiano) Course <Eric Greer - Last Filed: 02/18/19 12:49> Vital Signs 02/18/19 08:38 Temperature 98.7 F Pulse Rate 99 Respiratory 18 Rate Blood Pressure 117/66 O2 Sat by Pulse 96 Oximetry - Reevaluation(s) Reevaluation #1: 02/18/19 12:48 PA supervision: I proceeded [id number] evaluation the patient did discuss the findings with him and his family. He did fall in his driveway recently he does demonstrate a hematoma to the left orbit and periorbital region. Imaging shows no evidence of acute fracture subluxation. Patient is awake alert oriented 3 with a [place] Coma Scale of 15. He will be discharged I do agree with the assessment and plan. (Eric Greer) Medical Decision Making - Lab Data Result diagrams: 02/18/19 09:26 02/18/19 09:26 - Radiology Data Radiology results: report reviewed <Martina Anguiano - Last Filed: 02/18/19 12:36> - Lab Data Result diagrams: 02/18/19 09:26 02/18/19 09:26 <Eric Greer - Last Filed: 02/18/19 12:49> - Lab Data Lab Results 02/18/19 02/18/19 02/18/19 Range/Units 09:26 09:26 09:26 WBC 3.9 (3.8-10.6) k/uL RBC 4.41 (4.30-5.90) m/uL Hgb 13.1 (13.0-17.5) gm/dL Hct 37.6 L (39.0-53.0) % MCV 85.4 (80.0-100.0) fL MCH 29.8 (25.0-35.0) pg MCHC 34.9 (31.0-37.0) g/dL RDW 15.0 (11.5-15.5) % Plt Count 83 L (150-450) k/uL Neutrophils % 74 % Lymphocytes % 13 % Monocytes % 8 % Eosinophils % 1 % Basophils % 0 % Neutrophils # 2.8 (1.3-7.7) k/uL Lymphocytes # 0.5 L (1.0-4.8) k/uL Monocytes # 0.3 (0-1.0) k/uL Eosinophils # 0.0 (0-0.7) k/uL Basophils # 0.0 (0-0.2) k/uL PT 11.0 (9.0-12.0) sec INR 1.0 (<1.2) APTT 26.6 (22.0-30.0) sec Sodium 132 L (137-145) mmol/L Potassium 4.3 (3.5-5.1) mmol/L Chloride 102 (98-107) mmol/L Carbon Dioxide 22 (22-30) mmol/L Anion Gap 8 mmol/L BUN 19 (9-20) mg/dL Creatinine 0.90 (0.66-1.25) mg/dL Est GFR (CKD-EPI)AfAm >90 (>60 ml/min/1.73 sqM) Est GFR (CKD-EPI)NonAf 80 (>60 ml/min/1.73 sqM) Glucose 143 H (74-99) mg/dL Calcium 9.2 (8.4-10.2) mg/dL Total Bilirubin 0.7 (0.2-1.3) mg/dL AST 69 H (17-59) U/L ALT 41 (21-72) U/L Alkaline Phosphatase 71 (38-126) U/L Troponin I (0.000-0.034) ng/mL Total Protein 6.7 (6.3-8.2) g/dL Albumin 3.8 (3.5-5.0) g/dL 02/18/19 Range/Units 09:26 WBC (3.8-10.6) k/uL RBC (4.30-5.90) m/uL Hgb (13.0-17.5) gm/dL Hct (39.0-53.0) % MCV (80.0-100.0) fL MCH (25.0-35.0) pg MCHC (31.0-37.0) g/dL RDW (11.5-15.5) % Plt Count (150-450) k/uL Neutrophils % % Lymphocytes % % Monocytes % % Eosinophils % % Basophils % % Neutrophils # (1.3-7.7) k/uL Lymphocytes # (1.0-4.8) k/uL Monocytes # (0-1.0) k/uL Eosinophils # (0-0.7) k/uL Basophils # (0-0.2) k/uL PT (9.0-12.0) sec INR (<1.2) APTT (22.0-30.0) sec Sodium (137-145) mmol/L Potassium (3.5-5.1) mmol/L Chloride (98-107) mmol/L Carbon Dioxide (22-30) mmol/L Anion Gap mmol/L BUN (9-20) mg/dL Creatinine (0.66-1.25) mg/dL Est GFR (CKD-EPI)AfAm (>60 ml/min/1.73 sqM) Est GFR (CKD-EPI)NonAf (>60 ml/min/1.73 sqM) Glucose (74-99) mg/dL Calcium (8.4-10.2) mg/dL Total Bilirubin (0.2-1.3) mg/dL AST (17-59) U/L ALT (21-72) U/L Alkaline Phosphatase (38-126) U/L Troponin I 0.014 (0.000-0.034) ng/mL Total Protein (6.3-8.2) g/dL Albumin (3.5-5.0) g/dL 02/18/19 09:26 EKG shows a sinus of the right bundle branch block. Abnormal EKG noted. Ventricular rate of 86 bpm. IL interval is 162 ms. QRS duration is 154 ms. QT QTc is 378/452 ms. (Martina Anguiano) - Radiology Data Few fracture dislocation of the left hand. Chronic pulmonary fibrosis no focal consolidation. No acute cranial process some mild periventricular white matter ischemic change changes may be present. Soft tissue swelling over the left orbital region with lateral any hematoma. No underlying fracture is evident. CT shows no acute osseous abdomen and cervical spine. Mild scoliosis and kyphosis with degenerative disc changes. Vertebral joint hypertrophy with foraminal narrowing as discussed above. Soft tissue swelling and hematoma in the left frontal supraorbital region. No underlying fractures evident. (Martina Anguiano) Disposition Is patient prescribed a controlled substance at d/c from ED?: No Time of Disposition: 12:34 <Martina Anguiano - Last Filed: 02/18/19 12:36> <Eric Greer - Last Filed: 02/18/19 12:49> Clinical Impression: Fall, Traumatic hematoma of left orbit, Contusion of left hand, Abrasion, multiple sites Disposition: HOME SELF-CARE Condition: Good Instructions (If sedation given, give patient instructions): Hematoma (ED) Additional Instructions: Patient advsied to a follow-up with ophthalmology. Apply eye ointment dennis and around the eye. Make sure that you're using plenty of cool compresses or ice over the eye to help with swelling. Return to the emergency department if any alarming signs or symptoms occur. Prescriptions: Erythromycin Ophth Oint [Romycin Ophth Oint] 1 applic LEFT EYE QID #1 bottle Referrals: Percy Caldwell MD [Primary Care Provider] - 1-2 days Sang Shahid MD [STAFF PHYSICIAN] - 1-2 days
[2019-02-18 09:47] LABS: ALT 41 U/L (21-72); AST 69 U/L (17-59); Albumin 3.8 g/dL (3.5-5.0); Alkaline Phosphatase 71 U/L (38-126); Anion Gap 8 mmol/L; Blood Urea Nitrogen 19 mg/dL (9-20); Calcium 9.2 mg/dL (8.4-10.2); Carbon Dioxide 22 mmol/L (22-30); Chloride 102 mmol/L (98-107); Glucose 143 mg/dL (74-99); Partial Thromboplastin Time 26.6 sec (22.0-30.0); Potassium 4.3 mmol/L (3.5-5.1); Sodium 132 mmol/L (137-145); Total Bilirubin 0.7 mg/dL (0.2-1.3); Total Protein 6.7 g/dL (6.3-8.2)
[2019-02-18 10:03] LABS: Basophils % (A) 0 %; Eosinophils % (A) 1 %; HCT 37.6 % (39.0-53.0); HGB 13.1 gm/dL (13.0-17.5); Lymphocytes # (A) 0.5 k/uL (1.0-4.8); Lymphocytes % (A) 13 %; MCH 29.8 pg (25.0-35.0); MCHC 34.9 g/dL (31.0-37.0); MCV 85.4 fL (80.0-100.0); Mean Platelet Volume 8.3; Monocytes # (A) 0.3 k/uL (0-1.0); Monocytes % (A) 8 %; Neutrophils # (A) 2.8 k/uL (1.3-7.7); Neutrophils % (A) 74 %; RBC 4.41 m/uL (4.30-5.90); WBC 3.9 k/uL (3.8-10.6)
[2019-02-18 10:05] LABS: Platelet Count 83 k/uL (150-450)
--- NOTE | 2019-02-18 10:57 | CT ---
EXAMINATION TYPE: CT brain francesco wo con DATE OF EXAM: 02/18/2019 COMPARISON: None HISTORY: Fall, bruising and swelling to Lt orbit CT DLP: 1084 (bone, cervical and facial) mGycm, Automated exposure control for dose reduction was use d. CONTRAST: Patient injected with 0 mL of Isovue 300. CT of the brain is performed utilizing 3 mm thick sections through the posterior fossa and 3 mm thick sections through the remaining calvarium. Study is performed within 24 hours of arrival to the hospital. No abnormal hyperdensity is present to suggest an acute intracranial hemorrhage. No mass lesion is evident. Some minimal periventricular white matter hypodensity may be present, most likely on the basis of chronic white matter ischemic changes. No acute infarcts are evident. Ventricles and sulci are appropriate for the patient age. Paranasal sinuses and mastoid air cells within the [id number] are clear. There is prominent soft tissue swelling over the left periorbital region. Underlying hematoma in the left frontal supraorbital region is evident measuring 1.6 x 2.3 cm. IMPRESSIONS: 1. No acute intracranial process. Some mild periventricular white matter ischemic type changes may be present. 2. Soft tissue swelling over the left orbital region with underlying hematoma. No underlying fracture is evident. CT cervical spine. COMPARISON: None CT of the cervical spine is performed in the axial plane at 2 mm thick sections. Reconstructed image s in the coronal, and sagittal plane are reviewed on the computer. No acute fractures are evident. There is a slight kyphosis centered at approximately C6-7. Mild degenerative disc changes are within the lower cervical spine. Spondylosis is present C5-C7. Prevertebral space appears normal. Some mild scoliosis is likely present. This could partially be positional. Disc heights are preserved. Vertebral body heights are preserved. No spinal canal stenosis is evident. Uncovertebral joint hypertrophy is present causing mild foraminal narrowing C3-4 through C6-7 bilater ally. IMPRESSIONS: 1. No acute osseous abnormality cervical spine. 2. Mild scoliosis and kyphosis with degenerative disc changes. 3. Uncovertebral joint hypertrophy with foraminal narrowing discussed above.
--- NOTE | 2019-02-18 11:09 | CT ---
EXAMINATION TYPE: CT facial bones wo con DATE OF EXAM: 02/18/2019 COMPARISON: None HISTORY: Fall, bruising and swelling to Lt orbit CT DLP: 1084 (cervical, brain and facial) mGycm CONTRAST: None The paranasal sinuses are examined in the axial plane at 2 mm thick sections. Reconstructed images i n the coronal plane were obtained. There is soft tissue swelling over the left periorbital region at the level of the greater wing of th e sphenoid and superior orbit. Soft tissue windows an underlying hematoma measuring approximately 2.1 x 1.6 cm is present. Diffuse soft tissue swelling is over the left periorbital region and left cheek . The underlying osseous structures appear intact without evidence of fracture. Inferior orbital floo r appears intact. Medial wall is intact. The globes are symmetrical. Intraconal and extraconal fat is normal. Nasal bones are intact. The osti omeatal units are patent. Minimal mucosal thickening is near the hiatus semilunaris on the right. The septum is evaluated. There is septal deviation to the left. Septal spur is also noted.. IMPRESSIONS: 1. Soft tissue swelling and hematoma at the left frontal and supraorbital region. No underlying frac tures evident.
--- NOTE | 2019-02-18 11:36 | XR ---
EXAMINATION TYPE: XR chest 2V DATE OF EXAM: 02/18/2019 COMPARISON: 05/19/2017 HISTORY: Chest pain TECHNIQUE: Frontal and lateral views of the chest are obtained. FINDINGS: Increased interstitial lung markings are seen throughout that appear chronic. No new focal consolidation is seen. Cardia mediastinal silhouette is upper limits of normal. Prior healed distal right clavicular fracture. Tortuosity of the descending thoracic aorta and suspected small hiatal her marco. IMPRESSION: Chronic pulmonary fibrosis. No new focal consolidation.
--- NOTE | 2019-02-18 11:37 | XR ---
EXAMINATION TYPE: XR hand complete LT DATE OF EXAM: 02/18/2019 CLINICAL HISTORY: Left hand pain and swelling after fall TECHNIQUE: Frontal, lateral and oblique images of the left hand are obtained. COMPARISON: None. FINDINGS: There is no acute fracture/dislocation evident in the left hand. The joint spaces in the l eft hand appear within normal limits. The overlying soft tissue appears unremarkable. IMPRESSION: There is no acute fracture or dislocation in the left hand.
== END 2019-02-18 12:57 | disposition home or self-care (01) ==
LOC: EC 08:37
DX: S60.222A Contusion of left hand, initial encounter (principal); S05.12XA Contusion of eyeball and orbital tissues, left eye, initial encounter; J84.10 Pulmonary fibrosis, unspecified; M47.812 Spondylosis without myelopathy or radiculopathy, cervical region; M40.202 Unspecified kyphosis, cervical region; M48.02 Spinal stenosis, cervical region; I45.10 Unspecified right bundle-branch block; R94.31 Abnormal electrocardiogram [ECG] [EKG]; S61.211A Laceration without foreign body of left index finger without damage to nail, initial encounter; S61.217A Laceration without foreign body of left little finger without damage to nail, initial encounter; S61.213A Laceration without foreign body of left middle finger without damage to nail, initial encounter; S61.215A Laceration without foreign body of left ring finger without damage to nail, initial encounter; S61.012A Laceration without foreign body of left thumb without damage to nail, initial encounter; F03.90 Unspecified dementia, unspecified severity, without behavioral disturbance, psychotic disturbance, mood disturbance, and anxiety; E78.5 Hyperlipidemia, unspecified; I10 Essential (primary) hypertension; G47.30 Sleep apnea, unspecified; F17.200 Nicotine dependence, unspecified, uncomplicated; Z85.038 Personal history of other malignant neoplasm of large intestine; Z90.49 Acquired absence of other specified parts of digestive tract; Z99.89 Dependence on other enabling machines and devices; Z23 Encounter for immunization; W01.198A Fall on same level from slipping, tripping and stumbling with subsequent striking against other object, initial encounter; Y92.89 Other specified places as the place of occurrence of the external cause
CPT/HCPCS: 36415; 70450; 70486; 71046; 72125; 80053; 84484; 85025; 85610; 85730; 90471; 90715; 96360; 99284

== ENCOUNTER → 2019-03-20 | Outpatient (CLI) | payer MEDICARE ==
[2019-03-20 10:55] LABS: Appearance,Urine Clear (Clear); Bilirubin,Urine Negative (Negative); Blood,Urine Negative (Negative); Color,Urine Yellow; Glucose,Urine (UA) Negative (Negative); Ketones,Urine Negative (Negative); Leukocyte Esterase,Urine Negative (Negative); Nitrite,Urine Negative (Negative); Protein,Urine Negative (Negative); Specific Gravity,Urine 1.014 (1.001-1.035); Urobilinogen,Urine <2.0 mg/dL (<2.0)
--- NOTE | 2019-03-20 11:12 | US ---
EXAMINATION TYPE: US abdomen complete DATE OF EXAM: 03/20/2019 COMPARISON: NONE CLINICAL HISTORY: I71.4 Abdominal aortic aneurysm. AAA repair EXAM MEASUREMENTS: Liver Length: 14.2 cm Gallbladder Wall: 0.3 cm CBD: 0.3 cm Spleen: 12.4 cm Right Kidney: 10.8 x 4.3 x 4.4 cm Left Kidney: 12.1 x 6.9 x 5.6 cm Technical limitations due to large amount of overlying bowel content Pancreas: Obscured by bowel gas Liver: appears wnl Gallbladder: stone = 1.3cm Evidence for sonographic Simmons's sign: no CBD: appears wnl Spleen: wnl Right Kidney: cystic areas noted, largest = 4.0 x 3.3 x 4.0cm Left Kidney: cystic areas noted, largest = 3.2 x 2.9 x 2.7cm, possible cystic area mid = 1.4 x 1.3cm unable to clear out internal echoes as on prior exam Upper IVC: wnl Abd Aorta: distal aorta = 5.0 x 4.2cm, post surgical changes noted IMPRESSION: 1. Previous simple cyst appears complex measuring 1.4 x 1.3 cm on the current examination within the left kidney. 2. Bilateral simple renal cysts. 3. Cholelithiasis
[2019-03-20 11:13] LABS: HCT 42.2 % (39.0-53.0); MCH 29.8 pg (25.0-35.0); MCHC 33.1 g/dL (31.0-37.0); MCV 89.9 fL (80.0-100.0); Mean Platelet Volume 7.5; RBC 4.69 m/uL (4.30-5.90); RDW 15.1 % (11.5-15.5); WBC 7.2 k/uL (3.8-10.6)
[2019-03-20 11:14] LABS: ALT 19 U/L (21-72); AST 26 U/L (17-59); Albumin 4.1 g/dL (3.5-5.0); Alkaline Phosphatase 78 U/L (38-126); Anion Gap 5 mmol/L; Blood Urea Nitrogen 14 mg/dL (9-20); Calcium 9.6 mg/dL (8.4-10.2); Carbon Dioxide 30 mmol/L (22-30); Chloride 105 mmol/L (98-107); Cholesterol 142 mg/dL (<200); Glucose 89 mg/dL (74-99); HDL Cholesterol 39 mg/dL (40-60); LDL Cholesterol,Calculated 77 mg/dL (0-99); Potassium 4.8 mmol/L (3.5-5.1); Sodium 140 mmol/L (137-145); Total Bilirubin 0.6 mg/dL (0.2-1.3); Total Protein 7.3 g/dL (6.3-8.2); Triglycerides 129 mg/dL (<150)
[2019-03-20 11:16] LABS: Platelet Count 168 k/uL (150-450)
== END | disposition home or self-care (01) ==
LOC: RADUSWWP 09:35
PROVIDERS: ATTEND Internal Medicine
DX: K80.20 Calculus of gallbladder without cholecystitis without obstruction (principal); N28.1 Cyst of kidney, acquired; E11.9 Type 2 diabetes mellitus without complications; R41.3 Other amnesia; Z86.79 Personal history of other diseases of the circulatory system
CPT/HCPCS: 36415; 76700; 80053; 80061; 81003; 82043; 82570; 82607; 84443; 85027

== ENCOUNTER 2020-03-08 17:51 | Observation (INO) | payer MEDICARE ==
[2020-03-08] MEDS ORDERED: NITROGLYCERIN OINT 1 INCH/GM PACKET TOPICAL STA (18:14)
[2020-03-08] MEDS ORDERED: SODIUM CHLORIDE 0.9% 1,000 ML IV STA (18:14)
[2020-03-08] MEDS ORDERED: ASPIRIN 81 MG PO STA (18:14)
[2020-03-08] MEDS ORDERED: ONDANSETRON 4 MG/2 ML VIAL IVP STA (18:15)
[2020-03-08] MEDS ORDERED: FAMOTIDINE 20 MG/2 ML VIAL IV STA (18:15)
--- NOTE | 2020-03-08 18:20 | ED ---
General Adult HPI - General Chief complaint: Nausea/Vomiting/Diarrhea Stated complaint: vomiting/shaky Time Seen by Provider: 03/08/20 18:00 Source: patient, family, RN notes reviewed Mode of arrival: wheelchair Limitations: no limitations - History of Present Illness Initial comments: Patient is a pleasant 84-year-old male presenting to the emergency department with nausea vomiting. Onset of symptoms was a couple of hours ago. Patient vomited 3 or 4 times. Patient still has some nausea. Patient also admits to having some mild chest discomfort that is difficult for him to describe. Also mild nausea. Patient has dementia and is a poor historian. Majority of history is taken from . Patient was exerting himself somewhat this morning however not with onset of symptoms. Patient was smoking with onset of symptoms. Chest discomfort is sternal without radiation. No shortness of breath - Related Data Home Medications Medication Instructions Recorded Confirmed Finasteride [Proscar] 5 mg PO DAILY 05/19/17 02/18/19 Lisinopril [Zestril] 5 mg PO BID 05/19/17 02/18/19 Memantine [Namenda] 10 mg PO BID 05/19/17 02/18/19 Omeprazole 20 mg PO DAILY 05/19/17 02/18/19 Simvastatin [Zocor] 40 mg PO HS 05/19/17 02/18/19 Tamsulosin HCl [Flomax] 0.4 mg PO DAILY 05/19/17 02/18/19 Previous Rx's Medication Instructions Recorded Erythromycin Ophth Oint [Romycin 1 applic LEFT EYE QID #1 bottle 02/18/19 Ophth Oint] Allergies Allergy/AdvReac Type Severity Reaction Status Date / Time No Known Allergies Allergy Verified 02/18/19 09:57 Review of Systems ROS Statement: Those systems with pertinent positive or pertinent negative responses have been documented in the HPI. ROS Other: All systems not noted in ROS Statement are negative. Constitutional: Denies: fever Eyes: Denies: eye pain ENT: Denies: ear pain Respiratory: Reports: as per HPI. Denies: cough, dyspnea Cardiovascular: Reports: as per HPI, chest pain Endocrine: Denies: fatigue Gastrointestinal: Denies: abdominal pain Genitourinary: Denies: dysuria Musculoskeletal: Denies: back pain Skin: Denies: rash Neurological: Denies: headache Past Medical History Past Medical History: Cancer, Dementia, Hyperlipidemia, Hypertension, Sleep Apnea/CPAP/BIPAP Additional Past Medical History / Comment(s): wears CPAP at night, history of colon cancer History of Any Multi-Drug Resistant Organisms: None Reported Past Surgical History: Bowel Resection, Prostate Surgery Past Psychological History: No Psychological Hx Reported Smoking Status: Current every day smoker Past Alcohol Use History: Occasional Past Drug Use History: None Reported - Past Family History Father History Unknown: Yes Family Medical History: CVA/TIA Mother Family Medical History: CVA/TIA General Exam Limitations: no limitations General appearance: alert, in no apparent distress Head exam: Present: normocephalic Eye exam: Present: normal appearance, PERRL Neck exam: Present: normal inspection Respiratory exam: Present: wheezes (Minimal expiratory wheeze.). Absent: chest wall tenderness Cardiovascular Exam: Present: regular rate, normal rhythm Expanded Peripheral pulses: 2+: Radial (R), Radial (L), Dorsalis Pedis (R), Dorsalis Pedis (L) GI/Abdominal exam: Present: soft. Absent: tenderness Extremities exam: Present: normal inspection. Absent: pedal edema, calf tenderness Neurological exam: Present: alert Psychiatric exam: Present: normal affect, normal mood Skin exam: Present: normal color Course Vital Signs 03/08/20 03/08/20 03/08/20 17:52 17:57 18:11 Temperature 98.0 F Pulse Rate 82 80 Respiratory 18 20 16 Rate Blood Pressure 138/83 O2 Sat by Pulse 97 97 Oximetry 03/08/20 03/08/20 03/08/20 18:30 18:57 19:00 Temperature Pulse Rate 78 76 76 Respiratory 15 16 16 Rate Blood Pressure 140/79 137/79 137/79 O2 Sat by Pulse 98 94 L 94 L Oximetry 03/08/20 03/08/20 19:30 20:00 Temperature Pulse Rate 79 Respiratory 19 17 Rate Blood Pressure 141/87 143/83 O2 Sat by Pulse Oximetry EKG Findings - EKG Comments: EKG Findings:: Normal sinus rhythm 79. NM 194. QRS 166. QT 442. QTC 506. Right axis. Right bundle branch block. T-wave inversion in lead III and borderline aVF. Medical Decision Making - Medical Decision Making Patient reevaluated and resting complain bed. Patient is feeling better. No chest pain. No nausea. Patient again states never any shortness of breath. Radiology of normalities appear to be chronic. Patient and family updated on results and plan. Case discussed with Dr. barroso, who will admit covering for to viet, who admits for Dr. Hartman. - Lab Data Result diagrams: 03/08/20 18:21 03/08/20 18:21 Lab Results 03/08/20 03/08/20 03/08/20 Range/Units 18:21 18:21 18:21 WBC 7.0 (3.8-10.6) k/uL RBC 5.20 (4.30-5.90) m/uL Hgb 15.4 (13.0-17.5) gm/dL Hct 47.6 (39.0-53.0) % MCV 91.5 (80.0-100.0) fL MCH 29.6 (25.0-35.0) pg MCHC 32.3 (31.0-37.0) g/dL RDW 13.9 (11.5-15.5) % Plt Count 160 (150-450) k/uL Neutrophils % 84 % Lymphocytes % 9 % Monocytes % 4 % Eosinophils % 1 % Basophils % 0 % Neutrophils # 5.9 (1.3-7.7) k/uL Lymphocytes # 0.6 L (1.0-4.8) k/uL Monocytes # 0.2 (0-1.0) k/uL Eosinophils # 0.1 (0-0.7) k/uL Basophils # 0.0 (0-0.2) k/uL PT 11.3 (9.0-12.0) sec INR 1.1 (<1.2) APTT 24.6 (22.0-30.0) sec D-Dimer 4.33 H (<0.60) mg/L FEU Sodium 137 (137-145) mmol/L Potassium 4.1 (3.5-5.1) mmol/L Chloride 102 (98-107) mmol/L Carbon Dioxide 22 (22-30) mmol/L Anion Gap 13 mmol/L BUN 14 (9-20) mg/dL Creatinine 0.82 (0.66-1.25) mg/dL Est GFR (CKD-EPI)AfAm >90 (>60 ml/min/1.73 sqM) Est GFR (CKD-EPI)NonAf 82 (>60 ml/min/1.73 sqM) Glucose 133 H (74-99) mg/dL Calcium 9.7 (8.4-10.2) mg/dL Magnesium 1.9 (1.6-2.3) mg/dL Total Bilirubin 0.4 (0.2-1.3) mg/dL AST 29 (17-59) U/L ALT 15 (4-49) U/L Alkaline Phosphatase 92 (38-126) U/L Troponin I (0.000-0.034) ng/mL Total Protein 8.3 H (6.3-8.2) g/dL Albumin 4.6 (3.5-5.0) g/dL Amylase <30 L (30-110) U/L Lipase 132 (23-300) U/L 03/08/20 Range/Units 18:21 WBC (3.8-10.6) k/uL RBC (4.30-5.90) m/uL Hgb (13.0-17.5) gm/dL Hct (39.0-53.0) % MCV (80.0-100.0) fL MCH (25.0-35.0) pg MCHC (31.0-37.0) g/dL RDW (11.5-15.5) % Plt Count (150-450) k/uL Neutrophils % % Lymphocytes % % Monocytes % % Eosinophils % % Basophils % % Neutrophils # (1.3-7.7) k/uL Lymphocytes # (1.0-4.8) k/uL Monocytes # (0-1.0) k/uL Eosinophils # (0-0.7) k/uL Basophils # (0-0.2) k/uL PT (9.0-12.0) sec INR (<1.2) APTT (22.0-30.0) sec D-Dimer (<0.60) mg/L FEU Sodium (137-145) mmol/L Potassium (3.5-5.1) mmol/L Chloride (98-107) mmol/L Carbon Dioxide (22-30) mmol/L Anion Gap mmol/L BUN (9-20) mg/dL Creatinine (0.66-1.25) mg/dL Est GFR (CKD-EPI)AfAm (>60 ml/min/1.73 sqM) Est GFR (CKD-EPI)NonAf (>60 ml/min/1.73 sqM) Glucose (74-99) mg/dL Calcium (8.4-10.2) mg/dL Magnesium (1.6-2.3) mg/dL Total Bilirubin (0.2-1.3) mg/dL AST (17-59) U/L ALT (4-49) U/L Alkaline Phosphatase (38-126) U/L Troponin I <0.012 (0.000-0.034) ng/mL Total Protein (6.3-8.2) g/dL Albumin (3.5-5.0) g/dL Amylase (30-110) U/L Lipase (23-300) U/L - Radiology Data Radiology results: report reviewed (Computed tomography scan of the chest and abdomen aorta shows 4.1 aortic arch change from previous. 4.4 lower abdominal aortic aneurysm with endograft. Interstitial fibrosis and emphysema. Infiltrates are improved compared with previous.), image reviewed (Two-view chest x-ray shows fibrosis. Possible increasing infiltrates.) Disposition Clinical Impression: Chest pain Disposition: ADMITTED IP TO THIS HOSP Is patient prescribed a controlled substance at d/c from ED?: No Referrals: Percy Caldwell MD [Primary Care Provider] - 1-2 days Decision Time: 21:16
[2020-03-08 18:34] LABS: Basophils % (A) 0 %; Eosinophils # (A) 0.1 k/uL (0-0.7); Eosinophils % (A) 1 %; HCT 47.6 % (39.0-53.0); HGB 15.4 gm/dL (13.0-17.5); Lymphocytes # (A) 0.6 k/uL (1.0-4.8); Lymphocytes % (A) 9 %; MCH 29.6 pg (25.0-35.0); MCHC 32.3 g/dL (31.0-37.0); MCV 91.5 fL (80.0-100.0); Mean Platelet Volume 7.6; Monocytes # (A) 0.2 k/uL (0-1.0); Monocytes % (A) 4 %; Neutrophils # (A) 5.9 k/uL (1.3-7.7); Neutrophils % (A) 84 %; Platelet Count 160 k/uL (150-450); RDW 13.9 % (11.5-15.5)
[2020-03-08 18:43] LABS: ALT 15 U/L (4-49); AST 29 U/L (17-59); African American GFR (CKD) >90 (>60 ml/min/1.73 sqM); Albumin 4.6 g/dL (3.5-5.0); Alkaline Phosphatase 92 U/L (38-126); Amylase <30 U/L (30-110); Anion Gap 13 mmol/L; Blood Urea Nitrogen 14 mg/dL (9-20); Calcium 9.7 mg/dL (8.4-10.2); Carbon Dioxide 22 mmol/L (22-30); Chloride 102 mmol/L (98-107); Glucose 133 mg/dL (74-99); Magnesium 1.9 mg/dL (1.6-2.3); Non-African American GFR(CKD) 82 (>60 ml/min/1.73 sqM); Potassium 4.1 mmol/L (3.5-5.1); Sodium 137 mmol/L (137-145); Total Bilirubin 0.4 mg/dL (0.2-1.3); Total Protein 8.3 g/dL (6.3-8.2)
[2020-03-08 18:53] LABS: INR 1.1 (<1.2); Partial Thromboplastin Time 24.6 sec (22.0-30.0); Prothrombin Time 11.3 sec (9.0-12.0)
[2020-03-08 18:56] LABS: D-Dimer 4.33 mg/L FEU (<0.60)
--- NOTE | 2020-03-08 18:57 | XR ---
EXAMINATION TYPE: XR chest 2V DATE OF EXAM: 03/08/2020 COMPARISON: 02/18/2019 HISTORY: Shortness of breath TECHNIQUE: Frontal and lateral views of the chest are obtained. FINDINGS: Scattered senescent parenchymal changes noted. There is evidence of underlying pulmonary fibrosis how ever there appear to be increasing infiltrates at the lung bases and left upper lobe. Correlate for p neumonia. Heart size is stable. Mediastinal structures are stable and grossly unremarkable. No evidence for hilar prominence. Degenerative changes dorsal spine. IMPRESSION: 1. There is evidence of underlying pulmonary fibrosis however there appear to be increasing infiltrat es at the lung bases and left upper lobe. Correlate for pneumonia.
--- NOTE | 2020-03-08 20:23 | CT ---
EXAMINATION TYPE: CT angio thor/abd pel aorta DATE OF EXAM: 03/08/2020 COMPARISON: HISTORY: Syncope CT DLP: 2369.1 mGycm Automated exposure control for dose reduction was used. CONTRAST: Performed with IV Contrast, patient injected with 100 mL of Isovue 300. Multiple axial sections were obtained from the thoracic inlet to the floor the pelvis without and wit h IV contrast Isovue 100 mL. There are 3-D post processed images. FINDINGS: There is coarse reticular infiltrate in the lungs with mild pulmonary emphysema. Thoracic aorta is at heromatous. Aortic arch measures 4.1 cm. There is no sign of dissection. Heart is slightly enlarged. There is no pericardial effusion. There is small hiatal hernia. Liver spleen stomach pancreas gallbladder have normal size and contour. There is 1.5 cm calcified gal lstone. There is some hypertrophy of both adrenal glands. There are multiple bilateral renal cortical cysts t hat measure up to 4.4 cm. There is aneurysm of the lower abdominal aorta that measures up to 4.4 cm. There is aortoiliac stent. There is contrast opacification of the stent without evidence of thrombosi s. There is arterial flow in the iliac and femoral arteries. There is arterial flow in the renal yvonne kyara. There is arterial flow in the superior mesenteric artery and the celiac artery. Bladder distends smoothly. There is irregular enlarged prostate with calcification. Prostate measures 6.3 cm. There is no inguinal hernia. There is no free fluid in the pelvis. There are surgical clips apparently from resection of the right colon. The thoracic and lumbar spine are intact. There is no c ompression fracture. The bony pelvis is intact. There is no evidence of mesenteric edema. There is no ascites or free air. There is no sign of a juanito l obstruction. 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 4.4 cm fusiform lower abdominal aortic aneurysm with endograft. No evidence of hemodynamic stenosis. Atherosclerotic vascular disease. Mild hiatal hernia. Pulmonary interstitial fibrosis and pulmonary e mphysema. Interstitial infiltrates improved compared to 05/20/2017. Enlarged prostate.
[2020-03-08] MEDS ORDERED: NITROGLYCERIN SL TABS 0.4 MG TAB SUBLINGUAL PRN (21:16)
[2020-03-08] MEDS ORDERED: ONDANSETRON 4 MG/2 ML VIAL IVP PRN (21:57)
--- NOTE | 2020-03-09 02:07 | P.HPIM ---
History of Present Illness H&P Date: 03/08/20 The patient is an 84-year-old male with a PMH of dementia, hypertension, hyperlipidemia, and AAA s/p repair was brought into the ED by his for sudden onset of chest discomfort, nausea, vomiting, and diaphoresis. The patient was up poor historian and history thereby obtained from via phone ([phone]). She notes that the patient was in his usual state of health until about 5 PM earlier today when she found him shaking in the garage, was standing up, appearing diaphoretic and complaining of pain in the chest. He subsequently vomited 2-3 times, nonbloody, after which she brought him to the ED. The patient was unable to provide any meaningful history surrounding his episode and stated that he feels well and does not know why he is at the hospital. The notes that he has never had such symptoms in the past and that his symptoms had improved after presenting to the emergency room. The patient was feeling well at time of interview and denied any active complaints. He denied further chest pain, short of breath, nausea, vomiting, fever, or chills. He did endorse a chronic cough, unchanged, which he attributes to his smoking. 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 EKG revealed normal sinus rhythm at 79 bpm with right bundle branch block. Chest x-ray revealed infiltrates at the lung bases and left upper lobe. Laboratory evaluation revealed a WBC count of 7.0, hemoglobin 15.4, platelets 160, troponin less than 0.012, sodium 137, potassium 4.1, BUN 14, creatinine 0.8, glucose 133, and d- dimer 4.33. Review of Systems Pertinent positives and negatives as discussed in HPI, a complete review of systems was performed and all other systems are negative. Past Medical History Past Medical History: Cancer, Dementia, Hyperlipidemia, Hypertension, Sleep Apnea/CPAP/BIPAP Additional Past Medical History / Comment(s): wears CPAP at night, history of colon cancer History of Any Multi-Drug Resistant Organisms: None Reported Past Surgical History: Bowel Resection, Prostate Surgery Past Anesthesia/Blood Transfusion Reactions: No Reported Reaction Past Psychological History: No Psychological Hx Reported Smoking Status: Current every day smoker Past Alcohol Use History: Occasional Past Drug Use History: None Reported - Past Family History Father History Unknown: Yes Family Medical History: CVA/TIA Mother Family Medical History: CVA/TIA Medications and Allergies Home Medications Medication Instructions Recorded Confirmed Type Lisinopril [Zestril] 5 mg PO BID 05/19/17 03/08/20 History Omeprazole 20 mg PO DAILY 05/19/17 03/08/20 History Simvastatin [Zocor] 40 mg PO HS 05/19/17 03/08/20 History Cholecalciferol (Vitamin D3) 2,000 unit PO DAILY 03/08/20 03/08/20 History [Vitamin D3] Cyanocobalamin (Vitamin B-12) 1,000 mcg PO DAILY 03/08/20 03/08/20 History [Vitamin B-12] Vitamin B Complex 1 cap PO HS 03/08/20 03/08/20 History Allergies Allergy/AdvReac Type Severity Reaction Status Date / Time No Known Allergies Allergy Verified 02/18/19 09:57 Physical Exam Vitals: Vital Signs Temp Pulse Pulse Resp BP BP Pulse Ox 03/08/20 22:18 97.8 F 88 16 143/76 93 L 03/08/20 21:30 97.6 F 76 16 125/76 91 L 03/08/20 21:00 77 17 148/82 92 L 03/08/20 20:30 74 18 139/84 91 L 03/08/20 20:00 79 17 143/83 03/08/20 19:30 19 141/87 03/08/20 19:00 76 16 137/79 94 L 03/08/20 18:57 76 16 137/79 94 L 03/08/20 18:30 78 15 140/79 98 03/08/20 18:11 80 16 97 03/08/20 17:57 20 03/08/20 17:52 98.0 F 82 18 138/83 97 Intake and Output 03/08/20 03/08/20 03/09/20 14:59 22:59 06:59 Other: Weight 81.647 kg General: non toxic, no distress, appears at stated age, normal weight Derm: no unusual rashes/lesions no unusual ecchymoses, warm, dry Head: atraumatic, normocephalic, symmetric Eyes: EOMI, no lid lag, anicteric sclera, pupils equal round reactive to light ENT: Nose and ears atraumatic, no thrush, no pharyngeal erythema Neck: No thyromegaly, no cervical lymphadenopathy, trachea midline, supple Mouth: no lip lesion, mucus membranes moist Cardiovascular: S1S2 reg, no murmur, positive posterior tibial pulse bilateral, no edema, capillary refill less than 2 seconds Lungs: CTA bilateral, no rhonchi, no rales , no accessory muscle use Abdominal: soft, nontender to palpation, no guarding, no appreciable orga nomegaly, normal bowel sounds Ext: no gross muscle atrophy, muscle strength 5 out of 5 in all 4 extremities grossly, no contractures, Neuro: CN II-XI grossly intact, light touch intact all 4 extremities, finger to nose within normal limits, Psych: Alert, oriented to self and place, not oriented to time, appropriate affect Results CBC & Chem 7: 03/08/20 18:21 03/08/20 18:21 Labs: Abnormal Lab Results - Last 24 Hours (Table) 03/08/20 03/08/20 03/08/20 Range/Units 18:21 18:21 18:21 Lymphocytes # 0.6 L (1.0-4.8) k/uL D-Dimer 4.33 H (<0.60) mg/L FEU Glucose 133 H (74-99) mg/dL Total Protein 8.3 H (6.3-8.2) g/dL Amylase <30 L (30-110) U/L Thrombosis Risk Factor Assmnt - Choose All That Apply Any of the Below Risk Factors Present?: Yes Each Factor Represents 1 point: Obesity (BMI >25) Other Risk Factors: Yes Each Risk Factor Represents 3 Points: Age 75 years or older Other congenital or acquired thrombophilia - If yes, enter type in comment: No Thrombosis Risk Factor Assessment Total Risk Factor Score: 4 Thrombosis Risk Factor Assessment Level: Moderate Risk Assessment and Plan Plan: Chest pain, r/o ACS vs PE -Patient's CT angiogram of thoracic and abdominal aorta does not fully evaluate for PE -In light of elevated d-dimer, will treat empirically with anticoagulation until repeat CT angiogram versus VQ scan -Cardiology consulted -Trend troponin -Continue with aspirin, statin -Cardiac monitoring -Echocardiogram Chronic conditions: Hypertension, hyperlipidemia -Continue with home meds DVT prophylaxis -Lovenox The patient is admitted with an anticipated less than 2 midnight stay for evaluation of chest pain CODE STATUS: No Code Discussed with: Patient, Anticipated discharge date: 1-[address]: Home A total of 40 minutes was spent on the care of this complex patient more than 50% of the time was spent in counseling and care coordination.
[2020-03-09] MEDS ORDERED: ENOXAPARIN 80 MG/0.8 ML SYRINGE SQ SCH ×2 (02:30→08:00)
[2020-03-09 06:35] LABS: Cholesterol 121 mg/dL (<200); HDL Cholesterol 38 mg/dL (40-60); LDL Cholesterol,Calculated 60 mg/dL (0-99); Triglycerides 117 mg/dL (<150)
[2020-03-09] MEDS: LISINOPRIL 5 MG TAB PO SCH ×2 (08:46→21:35)
[2020-03-09] MEDS ORDERED: ASPIRIN 325 MG TAB PO SCH (09:00)
[2020-03-09 10:48] LABS: C Reactive Protein <5.0 mg/L (<10.0); LDH 433 U/L (313-618); Magnesium 1.9 mg/dL (1.6-2.3)
--- NOTE | 2020-03-09 12:25 | CONS ---
BRITTNY Ni is an 84-year-old gentleman with history of hypertension and dyslipidemia. Who presented to the hospital primarily stating that he was somewhat confused. He states that he did not know what was going on with him. Came into the hospital got admitted and then gradually got better. He denies chest pain, difficulty in breathing, palpitations, dizziness or syncope. There is no history of focal neurological disease. It is unclear if the patient is; however, when I review the admission history, physical, we are told that the patient had chest pain. But he also has dementia, maybe he is unsure of his symptoms. Patient is a poor historian. The information obtained from the by the primary care physician states that he complained of chest pain, became diaphoretic and then down on the floor. At the time of my evaluation this morning, he looks good and is free of symptoms. He had a CTA that showed an aortic arch aneurysm, aortic arch of 4.5, abdominal aorta 4.4 cm. EKG shows sinus rhythm with right bundle branch block. Chest x-ray showed evidence of pulmonary fibrosis. He has had 3 sets of cardiac enzymes that were all negative. Lipids are normal. He had elevated D-dimer but did not have CTA to rule out pulmonary embolism. He had a CT scan of the abdomen that showed abdominal aortic aneurysm with endograft. His creatinine is normal at 0.8, hemoglobin is normal at 15.4. He is currently on Lovenox at therapeutic doses with aspirin, Lipitor, Zestril. I will obtain a 2D echo on him to evaluate his LV function and wall motion. We may have to obtain a CT scan of the chest to rule out pulmonary embolism given the elevated D-dimer and consider a stress test on him to rule out ischemia. If the stress test is abnormal, he will need a cardiac catheterization. PAST MEDICAL HISTORY: Significant for abdominal aortic aneurysm status post endograft, hypertension, dyslipidemia, dementia. MEDICATIONS: At home include vitamin D, Zestril, omeprazole, Zocor. ALLERGIES: There are no known drug allergies. FAMILY HISTORY: Negative for premature coronary artery disease. SOCIAL HISTORY: Negative for smoking, EtOH abuse, or drug abuse. REVIEW OF SYSTEMS: HEENT: Unremarkable. CARDIAC: As described above. RESPIRATORY: Negative. GI: Negative. GENITOURINARY: Negative. ALLERGY/IMMUNOLOGY: Negative. SKIN: Negative. MUSCULOSKELETAL: Negative. ENDOCRINE: Negative. ONCOLOGICAL: Negative. CONSTITUTIONAL: Negative. SWITCH FOREMAN: Negative. Rest of the system review is not relevant. PHYSICAL EXAM: Comfortable at rest. Vital signs are stable. There is jugular venous distention. Carotid upstroke is normal. There is no bruit. Chest exam reveals good air entry bilaterally. Heart exam reveals first and second heart sounds. No gallop. No murmur. Abdomen is soft, nontender. Exam of extremities did not reveal any edema. Peripheral pulses are felt. LABS: Labs show that the D-dimer is elevated. Potassium is normal. Creatinine is normal. AST, ALT are within normal limits. Tropinins are negative. EKG shows sinus rhythm with right bundle branch block. ASSESSMENT: 1. Precordial chest pain. 2. Abnormal EKG. 3. Elevated D-dimer. 4. Hypertension. 5. Dyslipidemia. 6. Dementia. 7. History of abdominal aortic aneurysm. PLAN: I will obtain a 2D echo. Schedule him for a stress test tomorrow. He will have a CTA of the chest to rule out pulmonary embolism, given the elevated D-dimer. MMODL / IJN: [id number] /
--- NOTE | 2020-03-09 12:51 | P.PN ---
Subjective Progress Note Date: 03/09/20 Principal diagnosis: Chest pain Patient was seen and examined. No acute events overnight. Patient reports complete resolution of his symptoms. He denies any chest pain, shortness breath or palpitations. No nausea or vomiting. No fever or chills. Objective - Vital Signs Vital signs: Vital Signs Temp 98.3 F 03/09/20 08:00 Pulse 88 03/09/20 08:00 Resp 16 03/09/20 08:00 BP 127/65 03/09/20 08:00 Pulse Ox 92 L 03/09/20 08:00 Intake & Output 03/08/20 03/09/20 03/09/20 18:59 06:59 18:59 Intake Total 700 500 Output Total 500 500 Balance 200 0 Weight 81.647 kg 80.8 kg Intake: IV 700 400 Sodium Chloride 0.9% 1, 700 400 000 ml @ 100 mls/hr IV . Q10H STA Rx#:[id number] Oral 100 Output: Urine 500 500 Straight 500 Other: Voiding Method Toilet Toilet # Voids 0 1 - Exam General: [non toxic], [no distress], [appears at stated age] Derm: [warm], [dry] Head: [atraumatic], [normocephalic], [symmetric] Eyes: [EOMI], [no lid lag], [anicteric sclera] Mouth: [no lip lesion], [mucus membranes moist] Cardiovascular: [S1S2 reg], [no murmur], [positive DP pulse bilateral], Lungs: [CTA bilateral], [no rhonchi, no rales] , [no accessory muscle use] Abdominal: [soft], [ nontender to palpation], [no guarding], [no appreciable organomegaly] Ext: [no gross muscle atrophy], [no edema], [no contractures] Neuro: [no focal neuro deficits] Psych: [Alert], [oriented], [appropriate affect] - Labs CBC & Chem 7: 03/08/20 18:21 03/08/20 18:21 Labs: Abnormal Lab Results - Last 24 Hours (Table) 03/08/20 03/08/20 03/08/20 Range/Units 18:21 18:21 18:21 Lymphocytes # 0.6 L (1.0-4.8) k/uL D-Dimer 4.33 H (<0.60) mg/L FEU Glucose 133 H (74-99) mg/dL Total Protein 8.3 H (6.3-8.2) g/dL HDL Cholesterol (40-60) mg/dL Amylase <30 L (30-110) U/L 03/09/20 Range/Units 05:46 Lymphocytes # (1.0-4.8) k/uL D-Dimer (<0.60) mg/L FEU Glucose (74-99) mg/dL Total Protein (6.3-8.2) g/dL HDL Cholesterol 38 L (40-60) mg/dL Amylase (30-110) U/L Assessment and Plan Assessment: Chest pain, r/o ACS vs PE -Patient's CT angiogram of thoracic and abdominal aorta does not fully evaluate for PE -Review of CT angiogram by radiology shows no PE, Lovenox will be switched to prophylactic dosing -Cardiology consulted, plans for stress test tomorrow -Continue with aspirin, statin -Cardiac monitoring -Echocardiogram Chronic conditions: Hypertension, hyperlipidemia -Continue with home meds DVT prophylaxis -Lovenox
[2020-03-09 16:09] LABS: Ferritin 33.3 ng/mL (22.0-322.0)
[2020-03-09] MEDS ORDERED: ATORVASTATIN 20 MG TAB PO SCH (21:00)
[2020-03-10] MEDS ORDERED: AMINOPHYLLINE 500 MG/20 ML VIAL IV PRN (05:00)
[2020-03-10] MEDS ORDERED: CAFFEINE CITRATE 60 MG/3 ML VIAL IV PRN (06:00)
[2020-03-10] MEDS ORDERED: REGADENOSON 0.4 MG/5 ML SYRINGE IV ONE (06:00)
[2020-03-10] MEDS ORDERED: DIPYRIDAMOLE 46 MG in SODIUM CHLORIDE 0.9% 40.8 ML IV ONE (07:00)
[2020-03-10] MEDS ORDERED: ASPIRIN 81 MG PO SCH (09:00)
[2020-03-10] MEDS ORDERED: ENOXAPARIN 40 MG/0.4 ML SYRINGE SQ SCH (09:00)
[2020-03-10 09:09] VITALS: RESP 16
[2020-03-10] MEDS: LISINOPRIL 5 MG TAB PO SCH (11:48)
[2020-03-10 12:32] VITALS: BP 153/77; PULSE 85; TEMP 97.8
--- NOTE | 2020-03-10 12:52 | EST ---
EXERCISE STRESS DATE OF SERVICE: 03/10/2020 AGE: 84 SEX: M HT: 69" WT: 178 lbs PROTOCOL: Persantine Cardiolite STAGE: DURATION OF EXERCISE: HEART RATE REST: 77 BLOOD PRESSURE REST: 154/81 MAXIMUM HEART RATE ACHIEVED: 96 MAXIMUM BLOOD PRESSURE: 162/93 85% MPHR: 117 100% MPHR: 138 METS: INDICATIONS: Chest pain RESULTS: Baseline EKG revealed normal sinus rhythm with isolated PVCs and PACs. There was slightly leftward axis and right ventricular conduction delay was also noted. There is incomplete right bundle branch block pattern. Patient was administered Persantine as per corrected. Heart rate changed from 77-96 beats per minute. Blood pressure changed from 150/82 to 162/93. EKG remained inconclusive with a right bundle isolated PVCs. Patient did not have any angina. By EKG criteria, this is an inconclusive Lexiscan stress test because of resting EKG changes. The nuclear scan results which are more pertinent will be reported by the radiologist. MMODL / IJN: [id number] /
--- NOTE | 2020-03-10 12:55 | NM ---
EXAMINATION TYPE: NM stress persantine cardiolit DATE OF EXAM: 03/10/2020 COMPARISON: CTA aorta 2 days ago. HISTORY: Chest pain. History of hypertension, hypercholesteremia, and tobacco use with additional sym ptoms of difficulty breathing and palpitations. TECHNIQUE: After the intravenous administration of 10.3 mCi Tc 99m Sestamibi - Cardiolite resting SP ECT images acquired 60 minutes post injection. The patient received 46 mg Persantine, 24.7 mCi Tc 99m Sestamibi - Stress images obtained 35 minutes post injection FINDINGS: Review of stress and rest SPECT images demonstrates no distinct perfusion abnormality. Gated analysi s shows normal wall motion with an estimated left ventricular ejection fraction of 67 %. IMPRESSION: No scintigraphic evidence for reversible ischemia.
--- NOTE | 2020-03-10 14:11 | P.PN ---
Subjective Progress Note Date: 03/10/20 This is an 84-year-old gentleman with history of hypertension, hyperlipidemia, who presented to the hospital with mental status changes, he denied any chest pain, shortness of breath, dizziness or syncope. In the medical record as documented that the patient had an episode of chest discomfort although patient denied that. He was seen in consultation by Dr. Diaz and advised today to undergo a Persantine Cardiolite stress test. CTA of the chest that was performed was negative for pulmonary embolism. Patient underwent a Persantine Cardiolite stress test today that was negative for any reversible ischemia. Objective - Vital Signs Vital signs: Vital Signs Temp 97.8 F 03/10/20 12:00 Pulse 85 03/10/20 12:00 Resp 16 03/10/20 12:00 BP 153/77 03/10/20 12:00 Pulse Ox 96 03/10/20 12:00 Intake & Output 03/09/20 03/10/20 03/10/20 18:59 06:59 18:59 Intake Total 500 Output Total 900 Balance -400 Weight 80.9 kg 80.9 kg Intake: IV 400 Sodium Chloride 0.9% 1, 400 000 ml @ 100 mls/hr IV . Q10H STA Rx#:[id number] Oral 100 Output: Urine 900 Other: Voiding Method Toilet Toilet Toilet # Voids 1 - Exam PHYSICAL EXAMINATION: GENERAL: 84-year-old gentleman in no acute distress at the time of my examination HEENT: Head is atraumatic, normocephalic. Pupils equal, round. Sclera anic teric. Conjunctiva are clear. Mucous membranes of the mouth are moist. Neck is supple. There is no elevated jugular venous pressure.] bruit is heard. HEART EXAMINATION: Heart S1, S2 normal. No murmur or gallop heard. CHEST EXAMINATION: Lungs are clear to auscultation and precussion. No chest wall tenderness is noted on palpation or with deep breathing. ABDOMEN: Soft, nontender. Bowel sounds are heard. No organomegaly noted. EXTREMITIES: 2+ peripheral pulses with no evidence of peripheral edema and no calf tenderness noted. NEUROLOGIC patient is awake, alert and oriented 1 . - Labs CBC & Chem 7: 03/08/20 18:21 03/08/20 18:21 Assessment and Plan Plan: Assessment and plan #1 atypical chest pain, Persantine Cardiolite stress test negative for reversible ischemia #2 elevated d-dimer, CT of the chest negative for pulmonary embolism #3 hypertension #4 hyperlipidemia #5 history of abdominal aortic aneurysm #6 dementia Plan From cardiology's perspective, the patient may be able to be discharged home once cleared by primary. We'll make a follow-up appointment in the office post discharge. DNP note has been reviewed, I agree with a documented findings and plan of care. Patient was seen and examined.
--- NOTE | 2020-03-10 23:30 | DS ---
DISCHARGE SUMMARY DATE OF ADMISSION: 03/08/2020 DATE OF DISCHARGE: 03/10/2020 FINAL DIAGNOSIS: Anterior chest wall pain; could be musculoskeletal. HOSPITAL COURSE: This is an 84-year-old patient whose chronic stable medical conditions include some cognitive impairment, hyperlipidemia, hypertension, obstructive sleep apnea, uses CPAP, and a history of colon cancer. The patient is a smoker who presented to the ER with some nausea, vomiting and also chest discomfort. The patient because of cognitive impairment does not give a good history really. Chest x-ray showed some chronic changes, possibly. 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 There were also findings of pulmonary interstitial fibrosis and enlarged prostate. The patient did undergo a nuclear stress test that was negative. Today the patient is rather comfortable sitting up with no further pain. CONSULTATION: [facility]. PHYSICAL EXAMINATION: Temperature 97.8, pulse 85, respiration 16, blood pressure 153/77, pulse ox 96% on room air. LUNGS: Decreased breath sounds. CARDIOVASCULAR: First and second sounds normal. FINAL DIAGNOSES: 1. Anterior chest wall pain, possibly musculoskeletal. 2. Pulmonary fibrosis. 3. 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 4. Hyperlipidemia. 5. Essential hypertension. 6. Obstructive sleep apnea. Uses CPAP. 7. Chronic nicotine dependence. 8. Pulmonary fibrosis, chronic. 9. 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 10.A 4.4 cm fusiform lower abdominal aortic aneurysm with endograft. 11.Benign prostatic hypertrophy. DISCHARGE MEDICATIONS: 1. Zestril 5 mg b.i.d. 2. Omeprazole 20 mg daily. 3. Zocor 40 mg at bedtime. 4. Vitamin D3 2000 units p.o. daily. 5. Vitamin B12 1000 mcg a day. 6. Vitamin B complex 1 capsule p.o. at bedtime. 7. Aspirin 81 mg p.o. daily. FOLLOWUP: Follow up with Dr. Percy Caldwell on . Follow up with Dr. Renner on 03/24/2020. MMODL / IJN: [id number] /
== END 2020-03-10 16:36 | disposition home or self-care (01) ==
LOC: EC 17:51 → 3SCARD 21:16
PROVIDERS: ADMIT Hospitalist; ATTEND Hospitalist
DX: R07.89 Other chest pain (principal); R11.2 Nausea with vomiting, unspecified; R61 Generalized hyperhidrosis; J84.10 Pulmonary fibrosis, unspecified; G30.1 Alzheimer's disease with late onset; F02.80 Dementia in other diseases classified elsewhere, unspecified severity, without behavioral disturbance, psychotic disturbance, mood disturbance, and anxiety; E78.5 Hyperlipidemia, unspecified; I10 Essential (primary) hypertension; G47.33 Obstructive sleep apnea (adult) (pediatric); I71.2 Thoracic aortic aneurysm, without rupture; I71.4 Abdominal aortic aneurysm, without rupture; N40.0 Benign prostatic hyperplasia without lower urinary tract symptoms; R05 Cough; R93.1 Abnormal findings on diagnostic imaging of heart and coronary circulation; R79.1 Abnormal coagulation profile; R07.2 Precordial pain; I49.3 Ventricular premature depolarization; I49.1 Atrial premature depolarization; I45.19 Other right bundle-branch block; R41.82 Altered mental status, unspecified; E66.9 Obesity, unspecified; Z66 Do not resuscitate; Z68.26 Body mass index [BMI] 26.0-26.9, adult; F17.200 Nicotine dependence, unspecified, uncomplicated; Z79.82 Long term (current) use of aspirin; Z79.899 Other long term (current) drug therapy; Z85.038 Personal history of other malignant neoplasm of large intestine; Z99.89 Dependence on other enabling machines and devices; Z90.49 Acquired absence of other specified parts of digestive tract; Z98.890 Other specified postprocedural states; Z95.828 Presence of other vascular implants and grafts; Z82.3 Family history of stroke
CPT/HCPCS: 96361 ×3; 96372; 93005 ×2; 96374; 96375; 99285; 36415; 93017; 85379; 80061; 80053; 82728; 82150; 83605; 83615; 83690; 83735; 84484 ×2; 85025; 85610; 85730; 86140; 84145; 87635; 71046; 71275; 74174; 78452; G0378 ×3; C8929; A9500; J2405; J1650; J1245; Q9950; Q9967; 93306

== ENCOUNTER 2022-03-27 09:58 | Observation (INO) | payer MEDICARE ==
--- NOTE | 2022-03-27 11:24 | XR ---
EXAMINATION TYPE: XR chest 2V DATE OF EXAM: 03/27/2022 COMPARISON: 03/08/2020 HISTORY: 86-year-old male with cough and shortness of breath TECHNIQUE: AP and lateral views FINDINGS: The heart is enlarged. Diffuse interstitial densities. Patchy peripheral opacities. More focal conflu ent opacity in the left midlung compared to prior exam. No sizable pleural effusion on the lateral vi ew. IMPRESSION: 1. Cardiomegaly. 2. Redemonstrated diffuse interstitial changes, likely underlying pulmonary fibrosis. 3. Patchy peripheral opacities have increased. This could represent progressive fibrosis versus super imposed infiltrates including the possibility of cough and pneumonia. Clinically correlate. 4. Focal masslike opacity left midlung. Both neoplasm and pneumonia are in the differential at this t estefany. Follow-up after treatment to ensure clearance.
--- NOTE | 2022-03-27 12:07 | XR ---
EXAMINATION TYPE: XR shoulder complete 3 views RT, XR hand complete 3 views RT DATE OF EXAM: 03/27/2022 Comparison: None Clinical History: 86-year-old male right hand and shoulder pain from fall Findings: Right shoulder: There is the appearance of a chronic, incompletely united fracture of the distal right clavicle. AC j oint appears congruent and intact. Subacromial space is preserved. No acute fracture, subluxation, or dislocation is seen. Chest reported separately. Right hand: There is a 5 mm linear metal fragment within the dorsal soft tissues at the level of the first MCP hong int. There are external artifact or a retained needle fragment. [id number] degenerative spurrin g and joint space narrowing first CMC joint and mild at the triscaphe joint. Some subtle synovial magdiel cifications and calcifications of the TFC are noted. No acute fracture, subluxation, or dislocation s een. Impression: 1. Right shoulder: There appears to be chronic, incompletely united fracture of the distal right clav icle. Further clinical correlation recommended. No definite acute fracture. Chest reported separately . 2. Right hand: A 5 mm metallic wire or needle fragment within the dorsal soft tissues at the level of the first MTP joint. Mild osteoarthritic change at the base of the thumb. No acute osseous abnormali ty seen.
[2022-03-27] MEDS ORDERED: DIPH,PERTUS(ACELL)TETVAC-LF 0.5 ML VIAL IM ONE (12:16)
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
[2022-03-27 12:46] LABS: Basophils # (A) 0.1 k/uL (0-0.2); Basophils % (A) 1 %; Eosinophils # (A) 0.1 k/uL (0-0.7); Eosinophils % (A) 2 %; HCT 37.7 % (39.0-53.0); HGB 11.6 gm/dL (13.0-17.5); Lymphocytes # (A) 1.2 k/uL (1.0-4.8); Lymphocytes % (A) 17 %; MCH 26.1 pg (25.0-35.0); MCHC 30.8 g/dL (31.0-37.0); MCV 84.9 fL (80.0-100.0); Monocytes # (A) 0.6 k/uL (0-1.0); Monocytes % (A) 8 %; Neutrophils # (A) 4.9 k/uL (1.3-7.7); Neutrophils % (A) 70 %; Platelet Count 194 k/uL (150-450); RBC 4.44 m/uL (4.30-5.90); RDW 14.3 % (11.5-15.5)
[2022-03-27 13:00] LABS: Calcium 8.7 mg/dL (8.4-10.2); Magnesium 1.6 mg/dL (1.6-2.3); Potassium 4.6 mmol/L (3.5-5.1)
--- NOTE | 2022-03-27 13:17 | CT ---
EXAMINATION TYPE: CT brain cspine wo con DATE OF EXAM: 03/27/2022 COMPARISON: Prior trauma CT February 18, 2019 HISTORY: Weakness and pain, recent fall injury. CT DLP: 1293 mGycm. Automated Exposure Control for Dose Reduction was Utilized. TECHNIQUE: CT scan of the head and cervical spine are performed without contrast. FINDINGS: There is no acute intracranial hemorrhage or midline shift identified. Mild to moderate v entricular and sulcal prominence is redemonstrated. Mild to moderate low-attenuation in the deep and periventricular white matter is again seen. The calvarium is intact. Small degree of cerumen in the b ilateral external auditory canals. Mild mucosal thickening in the visualized portion of the bilateral maxillary sinuses. Mild to moderate mucosal thickening involving the ethmoid sinuses bilaterally. Gl obes are intact bilaterally. Cervical spine is visualized in its entirety from C1 through upper thoracic levels and demonstrates l evoconvex scoliosis centered in the upper thoracic spine without evidence of acute fracture or disloc ation. Prevertebral soft tissue appears within normal limits. The C1-C2 articulation is within norm al limits on the coronal images. Vertebral body heights are maintained. Moderate disc space narrowin g C5-C6 and C6-C7 levels. Moderate to severe disc space narrowing C7-T1 level extending into the uppe r thoracic spine. Posterior spur disc complexes mildly effaces the anterior thecal sac C6-C7 level an d C7-T1 levels. Review of axial images shows multilevel uncovertebral facet degenerative changes cont ributing to multilevel bilateral neural foraminal narrowing. There is moderate calcified plaque right carotid bulb level. Thyroid gland is normal in size. Lung apices show emphysematous change without p neumothorax. IMPRESSION: 1. There is no acute fracture or dislocation evident in the cervical spine. 2. No acute intracranial hemorrhage or or midline shift is seen.
[2022-03-27] MEDS ORDERED: NALOXONE 0.4 MG/ML 1 ML VIAL IV PRN (13:29)
[2022-03-27] MEDS ORDERED: ACETAMINOPHEN TAB 325 MG TAB PO PRN (13:29)
[2022-03-27] MEDS: SODIUM CHLORIDE 0.9% 1,000 ML IV SCH (17:11)
--- NOTE | 2022-03-27 17:14 | P.HPIM ---
History of Present Illness Chief Complaint: social issue Patient is a 86-year-old male with a past medical history significant for dementia, hyperlipidemia and essential hypertension that was brought in by his . Unfortunately family is unable to take care of the patient at this time. No murmurs present at bedside during my examination information was obtained by prior medical records, emergency department records and RN present at bedside. Apparently patient had a fall 2 or 3 days ago into a stationary bike. Today patient was experiencing extreme lethargy and weakness and was unable to perform his day-to-day activities. Patient's vital signs are currently stable he is on room air saturating 95% and above afebrile and normotensive. CBC reviewed hemoglobin 11.6 platelet count stable no leukocytosis, BMP reviewed all within normal limits. Serology showing positive covid. CT brain was completed which showed no acute intracranial hemorrhage or midline shift. Chest x-ray was reviewed which showed a possible focal masslike opacity in the left midlung both neoplasm and pneumonia in the differential as per radiology recommended follow- up after treatment. Past Medical History Past Medical History: Cancer, Dementia, Hyperlipidemia, Hypertension, Sleep Apnea/CPAP/BIPAP Additional Past Medical History / Comment(s): wears CPAP at night, history of colon cancer History of Any Multi-Drug Resistant Organisms: None Reported Past Surgical History: Bowel Resection, Prostate Surgery Past Anesthesia/Blood Transfusion Reactions: No Reported Reaction Past Psychological History: No Psychological Hx Reported Smoking Status: Never smoker Past Alcohol Use History: Occasional Past Drug Use History: None Reported - Past Family History Father History Unknown: Yes Family Medical History: CVA/TIA Mother Family Medical History: CVA/TIA Medications and Allergies Home Medications Medication Instructions Recorded Confirmed Type Omeprazole 20 mg PO DAILY 05/19/17 03/27/22 History Simvastatin [Zocor] 40 mg PO DAILY 05/19/17 03/27/22 History lisinopriL [Zestril] 5 mg PO BID 05/19/17 03/27/22 History Finasteride [Proscar] 5 mg PO DAILY 03/27/22 03/27/22 History Memantine [Namenda] 10 mg PO BID 03/27/22 03/27/22 History QUEtiapine [SEROquel] 50 mg PO HS 03/27/22 03/27/22 History Allergies Allergy/AdvReac Type Severity Reaction Status Date / Time No Known Allergies Allergy Verified 03/27/22 14:14 Physical Exam Vitals: Vital Signs Temp Pulse Resp BP Pulse Ox 03/27/22 15:30 64 18 134/83 95 03/27/22 12:32 70 12 128/72 95 03/27/22 10:06 99.1 F 68 20 108/56 96 Intake and Output 03/27/22 03/27/22 03/27/22 06:59 14:59 22:59 Other: Weight 74.843 kg Gen. patient is awake alert oriented does not seem to be in acute distress pleasantly confused Cardio normal S1/S2 Respiratory bilateral air entry Abdomen soft, nontender Neurologic exam patient is awake alert oriented 1 Results CBC & Chem 7: 03/27/22 12:25 03/27/22 12:25 Labs: Abnormal Lab Results - Last 24 Hours (Table) 03/27/22 03/27/22 03/27/22 Range/Units 10:14 12:25 12:25 Hgb 11.6 L (13.0-17.5) gm/dL Hct 37.7 L (39.0-53.0) % MCHC 30.8 L (31.0-37.0) g/dL BUN 23 H (9-20) mg/dL Coronavirus (PCR) Detected A (Not Detectd) Assessment and Plan Assessment: Assessment: #1 asymptomatic COVID-19 pneumonia #2 history of dementia #3 hyperlipidemia #4 essential hypertension Plan: -Admit to medicine for close monitoring -Aspiration/fall precaution -Resume home medication -PT/OT -DVT prophylaxis Lovenox
[2022-03-27] MEDS: QUEtiapine 50 MG TAB PO SCH (21:18)
[2022-03-27] MEDS: MEMANTINE 10 MG TAB PO SCH (21:18)
[2022-03-27] MEDS: lisinopriL 5 MG TAB PO SCH (21:18)
[2022-03-28 09:03] LABS: Basophils % (A) 0 %; Eosinophils # (A) 0.2 k/uL (0-0.7); Eosinophils % (A) 3 %; HCT 39.3 % (39.0-53.0); HGB 12.7 gm/dL (13.0-17.5); Hypochromasia Slight; Lymphocytes # (A) 0.9 k/uL (1.0-4.8); Lymphocytes % (A) 14 %; MCHC 32.2 g/dL (31.0-37.0); MCV 83.9 fL (80.0-100.0); Mean Platelet Volume 8.5; Monocytes # (A) 0.3 k/uL (0-1.0); Monocytes % (A) 4 %; Neutrophils # (A) 5.3 k/uL (1.3-7.7); Neutrophils % (A) 78 %; Platelet Count 195 k/uL (150-450); RBC 4.69 m/uL (4.30-5.90); RDW 14.6 % (11.5-15.5); WBC 6.8 k/uL (3.8-10.6)
[2022-03-28 09:25] LABS: African American GFR (CKD) 87 (>60 ml/min/1.73 sqM); Blood Urea Nitrogen 17 mg/dL (9-20); Calcium 8.9 mg/dL (8.4-10.2); Chloride 107 mmol/L (98-107); Glucose 156 mg/dL (74-99); Non-African American GFR(CKD) 75 (>60 ml/min/1.73 sqM); Potassium 3.9 mmol/L (3.5-5.1); Sodium 139 mmol/L (137-145)
[2022-03-28 09:26] LABS: Anion Gap 8 mmol/L; Carbon Dioxide 24 mmol/L (22-30)
[2022-03-28] MEDS: PANTOPRAZOLE 40 MG TABLET PO SCH (10:06)
[2022-03-28] MEDS: HEPARIN SODIUM,PORCINE/PF 5,000 UNIT/0.5 ML SYRINGE SQ SCH ×2 (10:06→17:32)
[2022-03-28] MEDS: MEMANTINE 10 MG TAB PO SCH ×2 (10:07→20:42)
[2022-03-28] MEDS: FINASTERIDE 5 MG TAB PO SCH (10:07)
[2022-03-28] MEDS: lisinopriL 5 MG TAB PO SCH ×2 (10:07→20:42)
[2022-03-28] MEDS: ATORVASTATIN 20 MG TAB PO SCH (10:07)
--- NOTE | 2022-03-28 13:39 | P.PN ---
Subjective Patient was examined at bedside today not complaining of any new symptomatology. Was eating lunch comfortably. Case discussed with RN and case man agement/social media intern. No family was present at bedside today. Objective - Vital Signs Vital signs: Vital Signs Temp 98.1 F 03/28/22 09:30 Pulse 55 L 03/28/22 09:30 Resp 21 03/28/22 09:30 BP 130/57 03/28/22 09:30 Pulse Ox 93 L 03/28/22 09:30 FiO2 Intake & Output 03/27/22 03/28/22 03/28/22 18:59 06:59 18:59 Weight 74.843 kg 74.843 kg Other: Voiding Method Diaper Diaper Incontinent Incontinent # Voids 2 - Exam Gen. patient is awake alert oriented does not seem to be in acute distress pleasantly confused Cardio normal S1/S2 Respiratory bilateral air entry Abdomen soft, nontender Neurologic exam patient is awake alert oriented 1 - Labs CBC & Chem 7: 03/28/22 08:35 03/28/22 08:35 Labs: Abnormal Lab Results - Last 24 Hours (Table) 03/28/22 03/28/22 Range/Units 08:35 08:35 Hgb 12.7 L (13.0-17.5) gm/dL Lymphocytes # 0.9 L (1.0-4.8) k/uL Glucose 156 H (74-99) mg/dL Assessment and Plan Assessment: Assessment: #1 asymptomatic COVID-19 pneumonia #2 history of dementia #3 hyperlipidemia #4 essential hypertension Plan: -Admit to medicine for close monitoring -Aspiration/fall precaution -Resume home medication -PT/OT - pending evaluation. -DVT prophylaxis Lovenox -music worker consulted
[2022-03-28] MEDS: QUEtiapine 50 MG TAB PO SCH (20:42)
[2022-03-28] MEDS: SODIUM CHLORIDE 0.9% 1,000 ML IV SCH (23:08)
[2022-03-29] MEDS: HEPARIN SODIUM,PORCINE/PF 5,000 UNIT/0.5 ML SYRINGE SQ SCH ×2 (00:35→09:01)
[2022-03-29] MEDS: FINASTERIDE 5 MG TAB PO SCH (09:02)
[2022-03-29] MEDS: ATORVASTATIN 20 MG TAB PO SCH (09:02)
[2022-03-29] MEDS: MEMANTINE 10 MG TAB PO SCH (09:02)
[2022-03-29] MEDS: lisinopriL 5 MG TAB PO SCH (09:02)
[2022-03-29] MEDS: PANTOPRAZOLE 40 MG TABLET PO SCH (09:02)
[2022-03-29] MEDS: SODIUM CHLORIDE 0.9% 1,000 ML IV SCH (09:02)
[2022-03-29 10:03] VITALS: BP 145/81; PULSE 68; RESP 23; TEMP 98.4
[2022-03-29 10:50] LABS: Basophils # (A) 0.02 X 10*3/uL (0.00-0.10); Basophils % (A) 0.3 %; Eosinophils % (A) 3.3 %; HGB 10.9 g/dL (13.0-17.0); Immature Grans, Automated 0.7 %; Lymphocytes # (A) 1.12 X 10*3/uL (0.90-5.00); Lymphocytes % (A) 18.7 %; MCHC 31.1 g/dL (32.0-37.0); MCV 83.3 fL (80.0-97.0); Mean Platelet Volume 10.1 fL (9.5-12.2); Monocytes # (A) 0.51 X 10*3/uL (0.20-1.00); Monocytes % (A) 8.5 %; NRBC Per 100 WBC 0 /100 WBCS (0.0-0.0); Neutrophils # (A) 4.11 X 10*3/uL (1.80-7.70); Neutrophils % (A) 68.5 %; Platelet Count 174 X 10*3/uL (140-440); RDW 14.8 % (11.5-14.5)
[2022-03-29 10:58] LABS: African American GFR (CKD) 90.6 (60.0-200.0); Anion Gap 9.4 mmol/L (10.00-18.00); BUN/Creat Ratio 18.22 Ratio (12.00-20.00); Blood Urea Nitrogen 16.4 mg/dL (9.0-27.0); Calcium 8.8 mg/dL (8.7-10.3); Carbon Dioxide 24.6 mmol/L (20.0-27.5); Non-African American GFR(CKD) 78.2 (60.0-200.0); Potassium 4.1 mmol/L (3.5-5.5)
--- NOTE | 2022-03-29 12:47 | P.DS ---
Providers Date of admission: 03/27/22 13:29 Attending physician: Annetta Huang DO Primary care physician: Sandra Herrera MD Hospital Course: Patient is a 86-year-old male with a past medical history significant for dementia, hyperlipidemia and essential hypertension that was brought in by his . Unfortunately family is unable to take care of the patient at this time. No murmurs present at bedside during my examination information was obtained by prior medical records, emergency department records and RN present at bedside. Apparently patient had a fall 2 or 3 days ago into a stationary bike. Today patient was experiencing extreme lethargy and weakness and was unable to perform his day-to-day activities. Patient's vital signs are currently stable he is on room air saturating 95% and above afebrile and normotensive. CBC reviewed hemoglobin 11.6 platelet count stable no leukocytosis, BMP reviewed all within normal limits. Serology showing positive covid. CT brain was completed which showed no acute intracranial hemorrhage or midline shift. Chest x-ray was reviewed which showed a possible focal masslike opacity in the left midlung both neoplasm and pneumonia in the differential as per radiology recommended follow- up after treatment. Patient was examined at bedside today not complaining of any shortness of breath, chest pain or palpitations. He is awake alert oriented 3. He was able to state his name and where he has and the name of the president. Patient continues to be on room air denies any respiratory symptoms. Patient states that he has vaccinated. At this time the patient is okay to be discharged spoke with case management that is setting up home with home health care. Patient is stable to be discharge. Vital signs are stable. Saturating above 94% on room air. CBC reviewed stable, no leukocytosis, and BMP unremarkable. Patient has been specifically instructed to follow with PCP on discharge. Patient Condition at Discharge: Fair Plan - Discharge Summary New Discharge Prescriptions: Continue Simvastatin [Zocor] 40 mg PO DAILY lisinopriL [Zestril] 5 mg PO BID Omeprazole 20 mg PO DAILY Memantine [Namenda] 10 mg PO BID Finasteride [Proscar] 5 mg PO DAILY QUEtiapine [SEROquel] 50 mg PO HS Discharge Medication List Omeprazole 20 mg PO DAILY 05/19/17 [History] Simvastatin [Zocor] 40 mg PO DAILY 05/19/17 [History] lisinopriL [Zestril] 5 mg PO BID 05/19/17 [History] Finasteride [Proscar] 5 mg PO DAILY 03/27/22 [History] Memantine [Namenda] 10 mg PO BID 03/27/22 [History] QUEtiapine [SEROquel] 50 mg PO HS 03/27/22 [History] Follow up Appointment(s)/Referral(s): Sabine Sanches [NON-STAFF] - As Needed Sandra Herrera MD [Primary Care Provider] - 1-2 days Discharge Disposition: HOME WITH HOME HEALTH SERVICES
== END 2022-03-29 14:04 | disposition home health service (06) ==
LOC: EC 09:58 → 4SSUR 13:29
PROVIDERS: ADMIT Internal Medicine; ATTEND Internal Medicine
DX: U07.1 COVID-19 (principal); J12.82 Pneumonia due to coronavirus disease 2019; F03.90 Unspecified dementia, unspecified severity, without behavioral disturbance, psychotic disturbance, mood disturbance, and anxiety; S42.031A Displaced fracture of lateral end of right clavicle, initial encounter for closed fracture; S61.421A Laceration with foreign body of right hand, initial encounter; M19.041 Primary osteoarthritis, right hand; I11.9 Hypertensive heart disease without heart failure; G47.30 Sleep apnea, unspecified; E78.5 Hyperlipidemia, unspecified; W01.198A Fall on same level from slipping, tripping and stumbling with subsequent striking against other object, initial encounter; Z79.82 Long term (current) use of aspirin; Z79.899 Other long term (current) drug therapy; Z85.038 Personal history of other malignant neoplasm of large intestine; Z90.49 Acquired absence of other specified parts of digestive tract; Z98.890 Other specified postprocedural states; Z82.3 Family history of stroke; Z23 Encounter for immunization
CPT/HCPCS: 96372 ×2; 90471; 99285; 36415; 93005; 97530; 97162; 97535; 97166; 80048 ×3; 83605; 83735; 85025 ×3; 87502; 87635; 73030; 73130; 71046; 72125; 70450; 90715; G0378 ×3; S0138 ×2; J1644 ×2

== ENCOUNTER 2022-04-11 15:17 | Inpatient (IN) | payer MEDICARE ==
[2022-04-11 16:13] LABS: Basophils % (A) 0 %; Eosinophils # (A) 0.2 k/uL (0-0.7); Eosinophils % (A) 3 %; HGB 11.3 gm/dL (13.0-17.5); Hypochromasia Slight; Lymphocytes # (A) 1.3 k/uL (1.0-4.8); Lymphocytes % (A) 16 %; MCH 26.8 pg (25.0-35.0); MCHC 31.5 g/dL (31.0-37.0); MCV 85.2 fL (80.0-100.0); Mean Platelet Volume 7.7; Monocytes # (A) 0.5 k/uL (0-1.0); Monocytes % (A) 7 %; Neutrophils # (A) 5.8 k/uL (1.3-7.7); Neutrophils % (A) 72 %; Platelet Count 228 k/uL (150-450); RBC 4.23 m/uL (4.30-5.90); RDW 15.8 % (11.5-15.5); WBC 8.1 k/uL (3.8-10.6)
[2022-04-11 16:22] LABS: Albumin 3.5 g/dL (3.5-5.0); Calcium 8.7 mg/dL (8.4-10.2); Potassium 4.3 mmol/L (3.5-5.1); Total Bilirubin 0.3 mg/dL (0.2-1.3); Total Protein 7.2 g/dL (6.3-8.2)
--- NOTE | 2022-04-11 16:48 | CT ---
EXAMINATION TYPE: CT brain cspine wo con CT DLP: 1372.3 mGycm, Automated exposure control for dose reduction was used. DATE OF EXAM: 04/11/2022 4:31 PM COMPARISON: 03/27/2022. CLINICAL INDICATION:Male, 86 years old with history of falls; 60 TECHNIQUE: Brain: Multiple axial CT images of the brain were obtained without IV contrast. Cspine: Axial CT images from the skull base to the inferior aspect of T2 we obtained without intraven ous contrast. Coronal and sagittal reformatted images were also reviewed. FINDINGS: Brain: Extra-axial spaces: No abnormal extra-axial fluid collections. Ventricular system: Within normal limits Cerebral parenchyma: New focus of celis-white matter loss of differentiation in the medial aspect of t he left frontal lobe was utilized on series 2021 image 45 compared to 03/27/2022. No acute intraparenc hymal hemorrhage or mass effect. The remainder of the celis-white junctions are well differentiated. Scattered hypoattenuating areas are seen within the white matter. Cerebellum: Unremarkable. Mass effect: No evidence of midline shift. Intracranial vasculature: Atherosclerotic calcifications of the intracranial vessels. Soft tissues: Normal Calvarium/osseous structures: No depressed skull fracture. Paranasal sinuses and mastoid air cells: Mild scattered mucosal thickening and or secretions. Visualized orbits: Bilateral aphakia Cervical spine: Fracture: None. Osseous structures: Multilevel degenerative disc disease changes with endplate spurring and disc oste ophyte complex's. Vertebral alignment: Increased kyphosis alignment. Spinal canal/Neural Foramina: No evidence of significant spinal canal narrowing. Facet joint uncovert ebral joint arthropathy scattered throughout the cervical spine with varying degrees of neural forami nal stenosis. Neck soft tissues: Prevertebral soft tissues are within normal limits. Other: The airway is patent. Emphysema changes seen within the lung apices. IMPRESSION: 1. No acute intracranial hemorrhage. 2. New from 03/27/2022, focus of celis-white matter loss differentiation suspicious for microinfarct. This could be further evaluated with MRI. 3. Nonspecific white matter changes, likely secondary to chronic small vessel ischemic disease. 4. No evidence of cervical spine fracture. 5. Moderate multilevel degenerative disc disease.
--- NOTE | 2022-04-11 17:20 | ED ---
General Adult HPI - General Chief complaint: Weakness Stated complaint: Falls Time Seen by Provider: 04/11/22 16:32 Source: patient Mode of arrival: ambulatory Limitations: no limitations - History of Present Illness Initial comments: Dictation was produced using [employer] dictation software. please excuse any grammatical, word or spelling errors. Chief Complaint: 86-year-old male presents to the emergency department for frequent falls and generalized weakness History of Present Illness: This is an 86-year-old male he was brought in by daughter and . Patient states that for the last several months he's been suffering from frequent falls. Over the last 4 weeks is been observed that patient has fallen at least 12 times. Patient denies any pain at this time. He states that sometimes he loses balance and falls. Denies any loss of consciousness. Patient denies any complaints of any pain today. Daughter and patient's report that he lives at home with just his and is unable to care for him anymore. The ROS documented in this emergency department record has been reviewed and confirmed by me. Those systems with pertinent positive or negative responses have been documented in the HPI. All other systems are other negative and/or noncontributory. PHYSICAL EXAM: General Impression: Alert and oriented x3, not in acute distress HEENT: Normocephalic atraumatic, extra-ocular movements intact, pupils equal and reactive to light bilaterally, mucous membranes moist. Cardiovascular: Heart regular rate and rhythm Chest: Able to complete full sentences, no retractions, no tachypnea Abdomen: abdomen soft, non-tender, non-distended, no organomegaly Musculoskeletal: Pulses present and equal in all extremities, no peripheral edema Motor: no focal deficits noted Neurological: CN II-XII grossly intact, no focal motor or sensory deficits noted Skin: Intact with no visualized rashes Psych: Normal affect and mood ED course: 86-year-old male presents emergency department for frequent falls and worsening debility. Signs upon arrival are within acceptable limits. EKG interpretation: Ventricular rate 69, sinus rhythm. Computer interpretation suggests second-degree AV block type II, QRS 165, QTc 440. This EKG has a lot of artifacts difficult to agree that this is in fact a second-degree type II AV block. EKG will be repeated Repeat EKG shows ventricular rate 71 sinus rhythm with right bundle branch block,. 172, care is 165, QTc 445. There is appear to be sinus pauses. No obvious presentation of second degree type II AV block or high degree AV block. Laboratory evaluation obtained. CBC, metabolic panel is within acceptable limits. There is a slight hypomagnesemia with magnesium level I.4. Patient turned emergency department. He is seen having multiple sinus positive that last for approximately one second. Patient over is well-appearing and has had no syncopal episodes while in the emergency department. Patient was observed in emergency department for 4 hours and 53 minutes. He is reevaluated bedside at 8:10 PM found to be in stable medical condition. Family is not able to care for patient. Patient be admitted to observation unit with consultation to cardiology for syncopal workup . Social work consulted. - Related Data Home Medications Medication Instructions Recorded Confirmed Omeprazole 20 mg PO DAILY 05/19/17 04/11/22 Simvastatin [Zocor] 40 mg PO DAILY 05/19/17 04/11/22 lisinopriL [Zestril] 5 mg PO BID 05/19/17 04/11/22 Finasteride [Proscar] 5 mg PO DAILY 03/27/22 04/11/22 Memantine [Namenda] 10 mg PO BID 03/27/22 04/11/22 QUEtiapine [SEROquel] 50 mg PO HS 03/27/22 04/11/22 Allergies Allergy/AdvReac Type Severity Reaction Status Date / Time No Known Allergies Allergy Verified 04/11/22 17:14 Review of Systems ROS Statement: Those systems with pertinent positive or pertinent negative responses have been documented in the HPI. ROS Other: All systems not noted in ROS Statement are negative. Past Medical History Past Medical History: Cancer, Dementia, Hyperlipidemia, Hypertension, Sleep Apnea/CPAP/BIPAP Additional Past Medical History / Comment(s): wears CPAP at night, history of colon cancer History of Any Multi-Drug Resistant Organisms: None Reported Past Surgical History: Bowel Resection, Prostate Surgery Past Anesthesia/Blood Transfusion Reactions: No Reported Reaction Past Psychological History: No Psychological Hx Reported Smoking Status: Never smoker Past Alcohol Use History: Occasional Past Drug Use History: None Reported - Past Family History Father History Unknown: Yes Family Medical History: CVA/TIA Mother Family Medical History: CVA/TIA General Exam Limitations: no limitations Course Vital Signs 04/11/22 04/11/22 04/11/22 15:43 18:21 19:52 Temperature 98.1 F 98 F Pulse Rate 82 75 82 Respiratory 22 18 18 Rate Blood Pressure 114/67 137/90 151/75 O2 Sat by Pulse 94 L 95 95 Oximetry Medical Decision Making - Lab Data Result diagrams: 04/11/22 16:09 04/11/22 16:09 Lab Results 04/11/22 04/11/22 04/11/22 Range/Units 16:09 16:09 16:09 WBC 8.1 (3.8-10.6) k/uL RBC 4.23 L (4.30-5.90) m/uL Hgb 11.3 L (13.0-17.5) gm/dL Hct 36.0 L (39.0-53.0) % MCV 85.2 (80.0-100.0) fL MCH 26.8 (25.0-35.0) pg MCHC 31.5 (31.0-37.0) g/dL RDW 15.8 H (11.5-15.5) % Plt Count 228 (150-450) k/uL MPV 7.7 Neutrophils % 72 % Lymphocytes % 16 % Monocytes % 7 % Eosinophils % 3 % Basophils % 0 % Neutrophils # 5.8 (1.3-7.7) k/uL Lymphocytes # 1.3 (1.0-4.8) k/uL Monocytes # 0.5 (0-1.0) k/uL Eosinophils # 0.2 (0-0.7) k/uL Basophils # 0.0 (0-0.2) k/uL Hypochromasia Slight APTT 26.3 (22.0-30.0) sec Sodium 138 (137-145) mmol/L Potassium 4.3 (3.5-5.1) mmol/L Chloride 104 (98-107) mmol/L Carbon Dioxide 26 (22-30) mmol/L Anion Gap 8 mmol/L BUN 23 H (9-20) mg/dL Creatinine 1.09 (0.66-1.25) mg/dL Est GFR (CKD-EPI)AfAm 72 (>60 ml/min/1.73 sqM) Est GFR (CKD-EPI)NonAf 62 (>60 ml/min/1.73 sqM) Glucose 107 H (74-99) mg/dL Calcium 8.7 (8.4-10.2) mg/dL Magnesium (1.6-2.3) mg/dL Total Bilirubin 0.3 (0.2-1.3) mg/dL AST 24 (17-59) U/L ALT 15 (4-49) U/L Alkaline Phosphatase 96 (38-126) U/L Troponin I (0.000-0.034) ng/mL Total Protein 7.2 (6.3-8.2) g/dL Albumin 3.5 (3.5-5.0) g/dL 04/11/22 04/11/22 Range/Units 16:09 16:09 WBC (3.8-10.6) k/uL RBC (4.30-5.90) m/uL Hgb (13.0-17.5) gm/dL Hct (39.0-53.0) % MCV (80.0-100.0) fL MCH (25.0-35.0) pg MCHC (31.0-37.0) g/dL RDW (11.5-15.5) % Plt Count (150-450) k/uL MPV Neutrophils % % Lymphocytes % % Monocytes % % Eosinophils % % Basophils % % Neutrophils # (1.3-7.7) k/uL Lymphocytes # (1.0-4.8) k/uL Monocytes # (0-1.0) k/uL Eosinophils # (0-0.7) k/uL Basophils # (0-0.2) k/uL Hypochromasia APTT (22.0-30.0) sec Sodium (137-145) mmol/L Potassium (3.5-5.1) mmol/L Chloride (98-107) mmol/L Carbon Dioxide (22-30) mmol/L Anion Gap mmol/L BUN (9-20) mg/dL Creatinine (0.66-1.25) mg/dL Est GFR (CKD-EPI)AfAm (>60 ml/min/1.73 sqM) Est GFR (CKD-EPI)NonAf (>60 ml/min/1.73 sqM) Glucose (74-99) mg/dL Calcium (8.4-10.2) mg/dL Magnesium 1.4 L (1.6-2.3) mg/dL Total Bilirubin (0.2-1.3) mg/dL AST (17-59) U/L ALT (4-49) U/L Alkaline Phosphatase (38-126) U/L Troponin I <0.012 (0.000-0.034) ng/mL Total Protein (6.3-8.2) g/dL Albumin (3.5-5.0) g/dL Disposition Clinical Impression: Debility Disposition: ADMITTED IP TO THIS HOSP Condition: Fair Referrals: Sandra Herrera MD [Primary Care Provider] - 1-2 days Decision Time: 06:30
[2022-04-11] MEDS: MAGNESIUM SULFATE-D5W PMX 1 GM in DEXTROSE/WATER 1 100ML.BAG IVPB SCH ×2 (18:34→20:50)
[2022-04-11] MEDS ORDERED: NALOXONE 0.4 MG/ML 1 ML VIAL IV PRN (19:46)
[2022-04-11] MEDS ORDERED: SODIUM CHLORIDE 0.9% 1,000 ML IV SCH (20:15)
--- NOTE | 2022-04-11 21:04 | P.HPIM ---
History of Present Illness H&P Date: 04/11/22 Chief Complaint: Weakness Patient is a 86-year-old male has a past medical history significant for dementia, hypertension. Patient is brought into the hospital due to generalized weakness and frequent falls. Patient is unable to provide any history based on his mentation information is taken from medical chart system as there is no family present at bedside. And unable to reach via telephone. Patient has been reported to have increased number of falls at home. On questioning patient patient denies any nausea vomiting no fevers no chills. He is not complaining of any chest pain or pressure he's not having any complaints of pain at this time. Review of Systems All systems: negative Past Medical History Past Medical History: Cancer, Dementia, Hyperlipidemia, Hypertension, Sleep Apnea/CPAP/BIPAP Additional Past Medical History / Comment(s): wears CPAP at night, history of colon cancer History of Any Multi-Drug Resistant Organisms: None Reported Past Surgical History: Bowel Resection, Prostate Surgery Past Anesthesia/Blood Transfusion Reactions: No Reported Reaction Past Psychological History: No Psychological Hx Reported Smoking Status: Never smoker Past Alcohol Use History: Occasional Past Drug Use History: None Reported - Past Family History Father History Unknown: Yes Family Medical History: CVA/TIA Mother Family Medical History: CVA/TIA Medications and Allergies Home Medications Medication Instructions Recorded Confirmed Type Omeprazole 20 mg PO DAILY 05/19/17 04/11/22 History Simvastatin [Zocor] 40 mg PO DAILY 05/19/17 04/11/22 History lisinopriL [Zestril] 5 mg PO BID 05/19/17 04/11/22 History Finasteride [Proscar] 5 mg PO DAILY 03/27/22 04/11/22 History Memantine [Namenda] 10 mg PO BID 03/27/22 04/11/22 History QUEtiapine [SEROquel] 50 mg PO HS 03/27/22 04/11/22 History Allergies Allergy/AdvReac Type Severity Reaction Status Date / Time No Known Allergies Allergy Verified 04/11/22 17:14 Physical Exam Osteopathic Statement: *. No significant issues noted on an osteopathic structural exam other than those noted in the History and Physical/Consult. Vitals: Vital Signs Temp Pulse Resp BP Pulse Ox 04/11/22 19:52 98 F 82 18 151/75 95 04/11/22 18:21 75 18 137/90 95 04/11/22 15:43 98.1 F 82 22 114/67 94 L Intake and Output 04/11/22 04/11/22 04/11/22 06:59 14:59 22:59 Other: Weight 74.843 kg - Constitutional General appearance: cooperative, no acute distress - EENT Eyes: EOMI, PERRLA ENT: normal oropharynx - Neck Neck: normal ROM - Respiratory Respiratory: bilateral: CTA - Cardiovascular Rhythm: regular Heart sounds: normal: S1, S2 - Gastrointestinal General gastrointestinal: normal bowel sounds, soft - Musculoskeletal Musculoskeletal: generalized weakness Results CBC & Chem 7: 04/11/22 16:09 04/11/22 16:09 Labs: Abnormal Lab Results - Last 24 Hours (Table) 04/11/22 04/11/22 04/11/22 Range/Units 16:09 16:09 16:09 RBC 4.23 L (4.30-5.90) m/uL Hgb 11.3 L (13.0-17.5) gm/dL Hct 36.0 L (39.0-53.0) % RDW 15.8 H (11.5-15.5) % BUN 23 H (9-20) mg/dL Glucose 107 H (74-99) mg/dL Magnesium 1.4 L (1.6-2.3) mg/dL Assessment and Plan (1) Debility Current Visit: Yes Status: Acute Code(s): R53.81 - OTHER MALAISE SNOMED Code(s): 70890973 (2) Weakness Current Visit: No Status: Acute Code(s): R53.1 - WEAKNESS SNOMED Code(s): 94775345 Plan: Debility Generalized weakness -Patient has a reported history of multiple falls and it appears that family is having a harder time taking care of patient at home due to his decreased functional status. We'll have PT and OT evaluate patient for recommendations on subacute rehab -We'll order a UA to rule out urinary tract infection -CT brain did not show any evidence of acute ischemic changes or hemorrhage. There is moderate multilevel degenerative disc disease Sinus pause -Patient has some frequent sinus pauses reported to be on telemetry and therefore emergency room physician consulted cardiology. -Patient has no complaints of chest pain or discomfort, troponins negative. EKG reviewed -We'll await further recommendations from cardiology Dementia -Patient is confused and disoriented. He does appear to be at his baseline mentation per documentation history Disposition: Patient will be admitted to observation floor. Patient will benefit from PTOT evaluation for possible need of long-term care placement versus subacute rehab. Patient also has cardiology consultation pending Diet: Heart healthy CODE STATUS: Full code DVT prophylaxis: Lovenox
[2022-04-11] MEDS: lisinopriL 5 MG TAB PO SCH (21:28)
[2022-04-11] MEDS: MEMANTINE 10 MG TAB PO SCH (21:28)
[2022-04-12] MEDS: SODIUM CHLORIDE 0.9% 1,000 ML IV SCH ×2 (01:42→18:03)
[2022-04-12] MEDS: PANTOPRAZOLE 40 MG TABLET PO SCH (06:19)
--- NOTE | 2022-04-12 08:28 | P.CRDCN ---
History of Present Illness History of present illness: This is an 86-year-old gentleman who was brought in by his daughter and complaining of recurrent episodes of falls and inability to take care of him at home. There is no history of syncope. No history of focal neurological deficits. Family is unable to care for him at home. Patient had an EKG that showed sinus rhythm with PVCs and PACs he does not have any evidence of high- grade AV block. He has history of abdominal aortic aneurysm for which she underwent surgical repair. Also has mild aortic stenosis patient has history of dementia and seems somewhat confused at rest. He is unsure as to why he is in the hospital. He had one set of troponin that's negative. Apparently suffered from Naidu virus infection several weeks ago. I'm going to obtain a 2-D echo on him and continue to watch him on telemetry at this time but I do not see any active cardiac problem of concern at this time. Review of systems: 14 out of 14 review of systems has been performed patient is confused pertinence are as documented General: The patient is awake and alert, in no distress, and does not appear acutely ill. Skin: Skin is warm and dry and no rashes or lesions are noted. Eye: Pupils are equal, round and reactive to light, extra-ocular movements are intact; there is normal conjunctiva bilaterally. Ears, nose, mouth and throat: There are moist mucous membranes and no oral l esions. Neck: The neck is supple, there is no tenderness or JVD. Cardiovascular: There is a regular rate and rhythm. No , rub or gallop is appreciated. There is a grade 2 ejection systolic murmur in the aortic area Respiratory: Lungs are clear to auscultation, respirations are non-labored, b reath sounds are equal. Gastrointestinal: Soft, non-distended, non-tender abdomen without masses or organomegaly noted. There is no rebound or guarding present. Bowel sounds are unremarkable. Back: There is no tenderness to palpation in the midline. There is no obvious deformity. Musculoskeletal: Normal ROM, no tenderness, There is no pedal edema. There is no calf tenderness or swelling. Extremities: Mild bilateral edema Vascular: Femoral pulse is normal. Posterior tibial pulses are normal .Dorsalis pedis is palpable. Neurological: CN II-XII intact. There are no obvious motor or sensory deficits. Speech is normal. Psychiatric: Pleasantly confused Assessment and plan: History of recurrent falls abdominal aortic aneurysm status post repair Dementia Abnormal EKG History of aortic stenosis I will obtain an echocardiogram to evaluate the aortic valve LV function No other cardiac workup Past Medical History Past Medical History: Cancer, Dementia, Hyperlipidemia, Hypertension, Sleep Apnea/CPAP/BIPAP Additional Past Medical History / Comment(s): wears CPAP at night, history of colon cancer History of Any Multi-Drug Resistant Organisms: None Reported Past Surgical History: Bowel Resection, Prostate Surgery Past Anesthesia/Blood Transfusion Reactions: No Reported Reaction Past Psychological History: No Psychological Hx Reported Smoking Status: Never smoker Past Alcohol Use History: Occasional Past Drug Use History: None Reported - Past Family History Father History Unknown: Yes Family Medical History: CVA/TIA Mother Family Medical History: CVA/TIA Medications and Allergies Home Medications Medication Instructions Recorded Confirmed Type Omeprazole 20 mg PO DAILY 05/19/17 04/11/22 History Simvastatin [Zocor] 40 mg PO DAILY 05/19/17 04/11/22 History lisinopriL [Zestril] 5 mg PO BID 05/19/17 04/11/22 History Finasteride [Proscar] 5 mg PO DAILY 03/27/22 04/11/22 History Memantine [Namenda] 10 mg PO BID 03/27/22 04/11/22 History QUEtiapine [SEROquel] 50 mg PO HS 03/27/22 04/11/22 History Allergies Allergy/AdvReac Type Severity Reaction Status Date / Time No Known Allergies Allergy Verified 04/11/22 17:14 Physical Exam Vitals: Vital Signs Temp Pulse Pulse Resp BP BP Pulse Ox 04/12/22 04:00 98.1 F 74 18 130/57 91 L 04/12/22 01:37 18 04/11/22 23:05 97.8 F 80 18 142/64 88 L 04/11/22 23:00 20 04/11/22 21:30 97.8 F 70 18 142/84 92 L 04/11/22 19:52 98 F 82 18 151/75 95 04/11/22 18:21 75 18 137/90 95 04/11/22 15:43 98.1 F 82 22 114/67 94 L Intake and Output 04/11/22 04/12/22 04/12/22 22:59 06:59 14:59 Other: Voiding Method Diaper # Voids 2 Weight 74.843 kg 74.843 kg Results 04/11/22 16:09 04/11/22 16:09 Cardiac Enzymes 04/11/22 04/11/22 Range/Units 16:09 16:09 AST 24 (17-59) U/L Troponin I <0.012 (0.000-0.034) ng/mL Coagulation 04/11/22 Range/Units 16:09 APTT 26.3 (22.0-30.0) sec CBC 04/11/22 Range/Units 16:09 WBC 8.1 (3.8-10.6) k/uL RBC 4.23 L (4.30-5.90) m/uL Hgb 11.3 L (13.0-17.5) gm/dL Hct 36.0 L (39.0-53.0) % Plt Count 228 (150-450) k/uL Comprehensive Metabolic Panel 04/11/22 Range/Units 16:09 Sodium 138 (137-145) mmol/L Potassium 4.3 (3.5-5.1) mmol/L Chloride 104 (98-107) mmol/L Carbon Dioxide 26 (22-30) mmol/L BUN 23 H (9-20) mg/dL Creatinine 1.09 (0.66-1.25) mg/dL Glucose 107 H (74-99) mg/dL Calcium 8.7 (8.4-10.2) mg/dL AST 24 (17-59) U/L ALT 15 (4-49) U/L Alkaline Phosphatase 96 (38-126) U/L Total Protein 7.2 (6.3-8.2) g/dL Albumin 3.5 (3.5-5.0) g/dL Current Medications Generic Name Dose Route Start Last Admin Trade Name Freq PRN Reason Stop Dose Admin Atorvastatin Calcium 20 mg 04/12/22 09:00 Atorvastatin 20 Mg Tab PO DAILY [facility]1983 Enoxaparin Sodium 40 mg 04/12/22 09:00 Enoxaparin 40 Mg/0.4 Ml Syringe SQ DAILY JENNY Finasteride 5 mg 04/12/22 09:00 Finasteride 5 Mg Tab PO DAILY FOR[facility]1983 Sodium Chloride 1,000 mls @ 50 mls/hr 04/11/22 21:00 04/12/22 01:42 Saline 0.9% IV Not Given .Q20H JENNY Lisinopril 5 mg 04/11/22 21:00 04/11/22 21:28 Lisinopril 5 Mg Tab PO 5 mg BID JENNY Administration Memantine 10 mg 04/11/22 21:00 04/11/22 21:28 Memantine 10 Mg Tab PO 10 mg BID JENNY Administration Naloxone HCl 0.2 mg 04/11/22 19:46 Naloxone 0.4 Mg/Ml 1 Ml Vial IV Q2M PRN Opioid Reversal Pantoprazole Sodium 40 mg 04/12/22 07:30 04/12/22 06:19 Pantoprazole 40 Mg Tablet PO 40 mg [id number] JENNY Administration Intake and Output 04/11/22 04/12/22 04/12/22 22:59 06:59 14:59 Other: Voiding Method Diaper # Voids 2 Weight 74.843 kg 74.843 kg 04/11/22 16:09 04/11/22 16:09
[2022-04-12 09:23] LABS: Basophils % (A) 0 %; Eosinophils # (A) 0.3 k/uL (0-0.7); Eosinophils % (A) 3 %; HGB 11.7 gm/dL (13.0-17.5); Hypochromasia Slight; Lymphocytes % (A) 11 %; MCH 26.4 pg (25.0-35.0); MCHC 30.8 g/dL (31.0-37.0); MCV 85.8 fL (80.0-100.0); Mean Platelet Volume 7.5; Monocytes # (A) 0.4 k/uL (0-1.0); Monocytes % (A) 4 %; Neutrophils % (A) 80 %; Platelet Count 246 k/uL (150-450); RBC 4.43 m/uL (4.30-5.90); RDW 15.1 % (11.5-15.5); WBC 8.8 k/uL (3.8-10.6)
[2022-04-12 09:45] LABS: ALT 14 U/L (4-49); AST 23 U/L (17-59); African American GFR (CKD) 76 (>60 ml/min/1.73 sqM); Albumin 3.6 g/dL (3.5-5.0); Alkaline Phosphatase 102 U/L (38-126); Anion Gap 8 mmol/L; Blood Urea Nitrogen 18 mg/dL (9-20); Calcium 9.1 mg/dL (8.4-10.2); Carbon Dioxide 28 mmol/L (22-30); Chloride 102 mmol/L (98-107); Glucose 116 mg/dL (74-99); Non-African American GFR(CKD) 66 (>60 ml/min/1.73 sqM); Phosphorus 3.5 mg/dL (2.5-4.5); Potassium 4.3 mmol/L (3.5-5.1); Sodium 138 mmol/L (137-145); Total Bilirubin 0.7 mg/dL (0.2-1.3); Total Protein 7.4 g/dL (6.3-8.2)
[2022-04-12] MEDS: FINASTERIDE 5 MG TAB PO SCH (09:59)
[2022-04-12] MEDS: lisinopriL 5 MG TAB PO SCH ×2 (09:59→20:48)
[2022-04-12] MEDS: ENOXAPARIN 40 MG/0.4 ML SYRINGE SQ SCH (09:59)
[2022-04-12] MEDS: ATORVASTATIN 20 MG TAB PO SCH (09:59)
[2022-04-12] MEDS: MEMANTINE 10 MG TAB PO SCH ×2 (09:59→20:48)
--- NOTE | 2022-04-12 09:59 | P.PN ---
Subjective Progress Note Date: 04/12/22 Hospital course: Patient is a very pleasant 86-year-old male with a past medical history of dementia, hypertension, abdominal aortic aneurysm status post repair, and BPH. Patient presented to the ER with a chief complaint of weakness and frequent falls at home. He underwent full evaluation in the emergency department. CT head and cervical spine negative for acute intercranial process revealing a focus of celis/white matter loss differentiation suspicious for microinfarct along with moderate multilevel degenerative disc disease. EKG showing sinus rhythm at 71 bpm with PACs. Repeat EKG showing sinus rhythm at 69 bpm with PACs and occasional PVCs. Labs reviewed. CBC unremarkable with the exception of normocytic normochromic anemia with hemoglobin of 11.3. BMP revealing mild prerenal azotemia with BUN of 23 otherwise normal findings. Magnesium was found to be significantly low at 1.4 and replaced. Troponin less than 0.012. In the emergency department, ER physician reported patient having multiple episodes of sinus pauses noted on telemetry. Patient was then admitted under our services with consultation to cardiology and neurology. Physical exam: Patient seen and fully evaluated at the bedside this morning. Patient alert to person and place and pleasantly confused to time and situation, easily reoriented. Denied having any complaints of pain or discomfort including headache, lightheadedness, dizziness, chest pain, palpitations, shortness of breath, or experiencing any numbness/tingling/weakness in his extremities. Morning labs reviewed and unremarkable showing no significant abnormalities with the exception of normocytic normochromic anemia with hemoglobin of 11.7 which is at baseline normal. Vital signs reviewed and stable. General: Nontoxic, no distress and appears stated age. Derm: Skin warm and dry, normal coloration for ethnicity. Head: Atraumatic, normocephalic and symmetric. Eyes: EOMs intact, no lid lag, and anicteric sclera Mouth: no lip lesions, mucus membranes moist Cardiovascular: irregular rhythm, normal S1S2, systolic murmur, positive posterior tibial pulses bilaterally, and cap refill < 2 seconds. Lungs: Respirations even, regular, and unlabored on room air. Lungs CTA bilaterally, no rhonchi, no rales, no wheezing, and no accessory muscle usage. Abdominal: soft, nontender to palpation, no guarding, no appreciable organomegaly Ext: ROM intact. No gross muscle atrophy, no edema, no contractures. Neuro: Speech clear, face symmetrical and CN II-XII grossly intact with no noted focal neuro deficits Psych: Alert and oriented to person and place, confused to time and situation. Appropriate and pleasant affect. Calm and cooperative. Assessment and Plan of Care: Weakness and frequent falls at home Dementia -Consult PT/OT -Consult neurology secondary to findings of CT reporting concerns for microinfarct -Neuro checks -Fall precautions -Safe and supportive care with redirection as needed. -Consult case management for possible placement. -Continue medication regimen with Namenda Abnormal EKG -Reports of frequent sinus pauses reported to be seen on the monitor in the emergency department were likely secondary to frequent PACs resulting in an irregular rhythm. No further episodes of sinus pauses noted this morning. -Troponin negative. TSH normal findings. -Magnesium was replaced, resulting in resolution of hypomagnesemia. -Telemetry monitoring -Cardiology following Hypomagnesemia, resolved Hypertension -Monitor vital signs and continue daily medication regimen with lisinopril. Hyperlipidemia -Continue daily medication regimen with atorvastatin. CODE STATUS: Full code DVT prophylaxis: Lovenox Discussed with: Patient and RN Anticipated discharge date: Clinical course to determine Anticipated discharge place: Home A total of 37 minutes was spent on the care of this complex patient more than 50% of the time was spent in counseling and care coordination. Objective - Vital Signs Vital signs: Vital Signs Temp 98.1 F 04/12/22 04:00 Pulse 74 04/12/22 04:00 Resp 18 04/12/22 04:00 BP 130/57 04/12/22 04:00 Pulse Ox 91 L 04/12/22 04:00 FiO2 Intake & Output 04/11/22 04/12/22 04/12/22 18:59 06:59 18:59 Intake Total 480 Balance 480 Weight 74.843 kg 74.843 kg Intake: Oral 480 Other: Voiding Method Diaper # Voids 2 - Labs CBC & Chem 7: 04/12/22 08:26 04/12/22 08:26 Labs: Abnormal Lab Results - Last 24 Hours (Table) 04/11/22 04/11/22 04/11/22 Range/Units 16:09 16:09 16:09 RBC 4.23 L (4.30-5.90) m/uL Hgb 11.3 L (13.0-17.5) gm/dL Hct 36.0 L (39.0-53.0) % MCHC (31.0-37.0) g/dL RDW 15.8 H (11.5-15.5) % BUN 23 H (9-20) mg/dL Glucose 107 H (74-99) mg/dL Magnesium 1.4 L (1.6-2.3) mg/dL 04/12/22 04/12/22 Range/Units 08:26 08:26 RBC (4.30-5.90) m/uL Hgb 11.7 L (13.0-17.5) gm/dL Hct 38.0 L (39.0-53.0) % MCHC 30.8 L (31.0-37.0) g/dL RDW (11.5-15.5) % BUN (9-20) mg/dL Glucose 116 H (74-99) mg/dL Magnesium (1.6-2.3) mg/dL
--- NOTE | 2022-04-12 11:18 | CA ---
Transthoracic Echo Report Name: Last [place] Age: 86 Gender: M : 1935 Exam Date: 04/12/2022 09:36 Exam Location: [facility] Ht (in): 68 Wt (lb): 165 Ordering Physician: Davey Gilliam MD ([id number]) Attending/Referring Phys: Mane MOURA Spreader Operator Doris Dai RDCS Procedure CPT: Indications: Syncope Cardiac Hx: Syncope Technical Quality: Good Contrast 1: N/A Total Dose (mL): Contrast 2: Total Dose (mL): MEASUREMENTS (Male / Female) Normal Values 2D ECHO LV Diastolic Diameter PLAX 4.3 cm 4.2 - 5.9 / 3.9 - 5.3 cm LV Systolic Diameter PLAX 3.5 cm IVS Diastolic Thickness 1.4 cm 0.6 - 1.0 / 0.6 - 0.9 cm LVPW Diastolic Thickness 2.0 cm 0.6 - 1.0 / 0.6 - 0.9 cm LV Relative Wall Thickness 0.8 RV Internal Dim ED PLAX 2.8 cm LA Systolic Diameter LX 3.5 cm 3.0 - 4.0 / 2.7 - 3.8 cm M-MODE Aortic Root Diameter MM 3.8 cm LA Systolic Diameter MM 3.7 cm LA Ao Ratio MM 1.0 MV E Point Septal Separation 0.8 cm AV Cusp Separation MM 1.8 cm DOPPLER MV Area PHT 2.6 cm??? Mitral E Point Velocity 43.0 cm/s Mitral A Point Velocity 78.3 cm/s Mitral E to A Ratio 0.5 MV Deceleration Time 288.9 ms MV E' Velocity 5.3 cm/s Mitral E to MV E' Ratio 8.1 FINDINGS Left Ventricle Normal left ventricular size, wall thickness, systolic function with no obvious regional wall motion abnormalities. Normal left ventricular diastolic filling pattern for age. The ejection fraction is visually estimated at 50-55%. Right Ventricle The right ventricle is normal in size and function. Right Atrium The right atrium is normal in size. Left Atrium The left atrium is normal in size. Mitral Valve Structurally normal mitral valve without significant stenosis or prolapse. There is no mitral regurgitation. Aortic Valve Trileaflet aortic valve. Aortic valve sclerosis. Tricuspid Valve Structurally normal tricuspid valve without significant stenosis. Pulmonary artery systolic pressure is normal. Pulmonic Valve Structurally normal pulmonic valve. Trace pulmonic regurgitation. Pericardium Normal pericardium without effusion. Aorta Normal aortic root dimension. CONCLUSIONS Normal LV size and systolic function. Aortic valve has sclerotic changes but no significant gradient. There is no significant valvular regurgitation and right-sided pressures are not significant. No pericardial effusion Previewed by: Dr. Janene Regan MD (Electronically Signed) Final Date: 12 April 2022 11:17
[2022-04-12 20:03] VITALS: TEMP 98.2
[2022-04-12] MEDS ORDERED: ASPIRIN 81 MG PO STA (21:11)
[2022-04-13 05:35] VITALS: BP 152/81; PULSE 72; RESP 16
--- NOTE | 2022-04-13 08:38 | US ---
EXAMINATION TYPE: US carotid duplex BILAT DATE OF EXAM: 04/13/2022 COMPARISON: NONE CLINICAL HISTORY: cva. EXAM MEASUREMENTS: RIGHT: Peak Systolic Velocity (PSV) cm/sec ----- Right CCA: 58.2 ----- Right ICA: 78.3 ----- Right ECA: 154. ICA/CCA ratio: 1.3 RIGHT: End Diastole cm/sec ----- Right CCA: 13.1 ----- Right ICA: 19.7 ----- Right ECA: 10.0 LEFT: Peak Systolic Velocity (PSV) cm/sec ----- Left CCA: 73.9 ----- Left ICA: 70.3 ----- Left ECA: 0.0 ICA/CCA ratio: 1.0 LEFT: End Diastole cm/sec ----- Left CCA: 7.8 ----- Left ICA: 18.3 ----- Left ECA: 0.0 VERTEBRALS (direction of flow): Right Vertebral: Antegrade Left Vertebral: Antegrade Rhythm: Arrhythmia IMPRESSION: Moderate atherosclerotic changes without significant velocity increases. Criteria for Assigning % of Stenosis / Diameter reduction (Estimation based on the indirect measurements of the internal carotid artery velocities (ICA PSV). 1. Normal (no stenosis)=ICA PSV < 125 cm/s: ratio < 2.0: ICA EDV<40 cm/s. 2. Less than 50% stenosis=ICA PSV < 125 cm/s: ratio < 2.0: ICA EDV<40 cm/s. 3. 50 to 69% stenosis=ICA PSV of 125 to 230 cm/s: ration 2.0 ? 4.0: ICA EDV 40-100 cm/s. 4. Greater than 70% stenosis to near occlusion= ICA PSV > 230 cm/s: ratio > 4.0: ICA EDV > 100 cm/s. 5. Near occlusion= ICA PSV velocities may be low or undetectable: variable ratio and ICA EDV. 6. Total occlusion=unable to detect flow.
[2022-04-13] MEDS: FINASTERIDE 5 MG TAB PO SCH (08:40)
[2022-04-13] MEDS: lisinopriL 5 MG TAB PO SCH (08:40)
[2022-04-13] MEDS: ENOXAPARIN 40 MG/0.4 ML SYRINGE SQ SCH (08:40)
[2022-04-13] MEDS: PANTOPRAZOLE 40 MG TABLET PO SCH (08:40)
[2022-04-13] MEDS: ATORVASTATIN 20 MG TAB PO SCH (08:40)
[2022-04-13] MEDS: MEMANTINE 10 MG TAB PO SCH (08:59)
[2022-04-13] MEDS ORDERED: ASPIRIN 81 MG PO SCH (09:00)
[2022-04-13 09:15] LABS: Chol/HDL Ratio 2.88 Ratio; LDL Cholesterol,Calculated 57.2 mg/dL (0.0-131.0); VLDL Calculation 15.32 mg/dL (5.00-40.00)
--- NOTE | 2022-04-13 10:31 | P.CNNES ---
History of Present Illness Consult date: 04/12/22 Requesting physician: Troy Ramos Reason for Consult: incr wknss/falls CT showing suspicious for microinfarcts new since 02/2022 History of Present Illness: Patient is a 86-year-old male brought to the hospital by his daughter and yesterday at 3:17 PM for frequent falls. Neurology is consulted for abnormal CT head and frequent falls. Patient not able to provide an adequate history. According to the electronic records, it was mentioned in the ED report, that over the last 4 weeks it has been observed that patient has fallen at least 12 times. Patient has mentioned that sometimes he loses balance and falls. No loss of consciousness. Patient denies any complains of pain. I spoke to patient, who denies any history of strokes. He says that he is not falling anymore. Denies any headache or dizziness. He claims that he smokes 1 pack per week. He states he has 4 children. Vital signs on arrival blood pressure 114/67 pulse rate 82 temperature 98.1. Blood test shows normal the [facility] hemoglobin 11.3 platelets 228. Electrolytes are normal, BUN 23 creatinine 1.09. Hepatic panel is normal, troponin negative, TSH normal. Patient was recently positive for lopes virus on 03/27/2022. Computed tomography scan of head showed new from 03/27/2022, focus of celis white matter loss differentiation suspicion for microinfarct. Nonspecific white matter changes, likely secondary to chronic small vessel ischemic disease. No acute intracranial hemorrhage. I did personally reviewed the CT head and agree with the findings. CT of the cervical spine showed No evidence of cervical spine fracture. Moderate multilevel degenerative disc disease. EKG shows sinus rhythm with occasional supraventricular premature complexes. Repeat EKG showed sinus rhythm with second degree AV block. Patient was recently evaluated in the ER on 03/27/2022 for generalized weakness that occurred 3 days after a fall from a stationary bike. Patient felt fine after the fall therefore the family did not bring him to the hospital. However he was generalized weak. CT head showed no acute processes and he was discharged. Patient tested positive for Covid-19. Patient currently taking Lipitor 20 mg, Lovenox 40 mg subcu daily, Namenda 10 mg twice a day Review of Systems All 14 point subcu systems reviewed, unremarkable except as mentioned above in HPI. Past Medical History Past Medical History: Cancer, Dementia, Hyperlipidemia, Hypertension, Sleep A pnea/CPAP/BIPAP Additional Past Medical History / Comment(s): wears CPAP at night, history of colon cancer History of Any Multi-Drug Resistant Organisms: None Reported Past Surgical History: Bowel Resection, Prostate Surgery Past Anesthesia/Blood Transfusion Reactions: No Reported Reaction Past Psychological History: No Psychological Hx Reported Smoking Status: Never smoker Past Alcohol Use History: Occasional Past Drug Use History: None Reported - Past Family History Father History Unknown: Yes Family Medical History: CVA/TIA Mother Family Medical History: CVA/TIA Medications and Allergies Home Medications Medication Instructions Recorded Confirmed Type Omeprazole 20 mg PO DAILY 05/19/17 04/11/22 History Simvastatin [Zocor] 40 mg PO DAILY 05/19/17 04/11/22 History lisinopriL [Zestril] 5 mg PO BID 05/19/17 04/11/22 History Finasteride [Proscar] 5 mg PO DAILY 03/27/22 04/11/22 History Memantine [Namenda] 10 mg PO BID 03/27/22 04/11/22 History QUEtiapine [SEROquel] 50 mg PO HS 03/27/22 04/11/22 History Allergies Allergy/AdvReac Type Severity Reaction Status Date / Time No Known Allergies Allergy Verified 04/11/22 17:14 Physical Examination - Vital Signs Vital Signs: Vital Signs Temp Pulse Pulse Resp BP BP Pulse Ox 04/12/22 16:00 97.3 F L 50 L 20 177/65 92 L 04/12/22 14:00 56 L 16 04/12/22 12:00 97.7 F 68 16 137/67 94 L 04/12/22 08:00 97.8 F 56 L 16 123/62 92 L 04/12/22 04:00 98.1 F 74 18 130/57 91 L 04/12/22 01:37 18 04/11/22 23:05 97.8 F 80 18 142/64 88 L 04/11/22 23:00 20 04/11/22 21:30 97.8 F 70 18 142/84 92 L 04/11/22 19:52 98 F 82 18 151/75 95 Intake and Output 04/12/22 04/12/22 04/12/22 06:59 14:59 22:59 Intake Total 840 Balance 840 Intake: Oral 840 Other: Voiding Method Diaper Diaper # Voids 2 2 Weight 74.843 kg Patient is an elderly male, in no acute distress. Patient is alert awake. Patient states it is November and then said was Saturday (for the month), and the year is 2013 and then said was 2011. He then said it was either the seventh or the eighth month. He knows that he is in a hospital in [facility] although does not know the name of the hospital. He knows name of the current president Marcelino G[place]. He could not name the state capital. Speech and language functions are normal. Patient can name and repeat very well. Attention, concentration and fund of knowledge is limited. Detailed testing deferred. On cranial nerve examination, pupils are equal, round and reacting to light, visual evans are full on confrontation, extraocular muscles are intact with no nystagmus. Face is symmetric, tongue protrudes to the midline. Palatal elevation and sensation normal, hearing and shoulder shrug normal, facial sensation normal. Shoulder shrug normal. On muscle strength testing, there is mild left drift, no pronation and the strength is normal in arms and legs distally and proximally, except left deltoid which is weak possibly from arthritis. Biceps and triceps are normal. Deep tendon reflexes are 1+ to 2+, symmetric and plantars downgoing. Sensory to touch is equal with no neglect. Cerebellar function showed no ataxia for [id number] testing. Tone and bulk of muscles normal. Gait deferred. On general examination, there is no carotid bruit or murmur, S1-S2 audible. Abdomen is soft nontender. No organomegaly, bowel sounds present. Chest is clear. Peripheral pulses are present. No edema. Results - Laboratory Findings CBC and BMP: 04/12/22 08:26 04/12/22 08:26 Abnormal Lab Findings: Abnormal Labs 04/11/22 04/11/22 04/11/22 16:09 16:09 16:09 RBC 4.23 L Hgb 11.3 L Hct 36.0 L MCHC RDW 15.8 H BUN 23 H Glucose 107 H Magnesium 1.4 L 04/12/22 04/12/22 08:26 08:26 RBC Hgb 11.7 L Hct 38.0 L MCHC 30.8 L RDW BUN Glucose 116 H Magnesium Assessment and Plan Assessment: * Small area of encephalomalacia involving left frontal region (new since CT head from 03/27/2022, but appears chronic in nature), may suggest subacute to chronic CVA, versus remote contusion from head trauma/fall. Patient has no history of stroke symptoms. Patient has presented with frequent falls. * Dementia * Hyperlipidemia * Hypertension * Sleep apnea Plan: * Patient's CT head showed evidence of subacute to chronic chronic small area of encephalomalacia in the left frontal region. Uncertain if related to a sub acute to chronic CVA or from a fall/remote concussion. * Patient will undergo carotid Doppler to rule out carotid stenosis. * We will check fasting lipid panel, hemoglobin A1c, B12 folate. * Patient on telemetry monitoring. Cardiology on board to evaluate for arrhythmia. * 2-D echo revealed normal left-ventricular size and systolic function. Aortic valve has sclerotic changes but no significant gradient. There is no significant valvular regurgitation and right-sided pressures are not significant. No pericardial effusion. * Patient will be given loading dose of aspirin 324 mg and start aspirin 81 mg daily. * Neurology will follow. Thank you for the consult.
--- NOTE | 2022-04-13 12:46 | PN ---
PROGRESS NOTE This is 86-year-old gentleman admitted yesterday to the third floor, transferred to medical floor. He is doing well from a cardiac standpoint. He has sinus bradycardia, right bundle with PACs. He is being placed in a long-term care facility. Vitals are stable. No JVD. S1-S2 heard normally. Short systolic murmur noted. Lungs reveal diminished air entry. Abdomen and lower extremity exam unchanged. Patient can be discharged or transferred to extended-care facility. No further intervention from a cardiac standpoint. Echo revealed fair systolic function. No evidence of any significant aortic stenosis. MMODL / IJN: [id number] /
[2022-04-13] MEDS ORDERED: FOLIC ACID 1 MG TAB PO SCH (16:30)
--- NOTE | 2022-04-13 16:35 | P.DS ---
Providers Date of admission: 04/11/22 20:11 Expected date of discharge: 04/13/22 Attending physician: Jagdeep Urias MD Consults: 04/11/22 20:06 Consult Physician Routine Consulting Provider: Carlos Martin Consult Reason/Comments: syncope, sinus pauses Do you want consulting provider notified?: Yes 04/12/22 14:18 Consult Physician Routine Consulting Provider: Basil Ronquillo Consult Reason/Comments: incr wknss/falls CT showing suspicious for microinfarcts new since 02/2022 Do you want consulting provider notified?: Yes Primary care physician: Sandra Herrera MD Hospital Course: Discharge Diagnosis: Weakness and frequent falls at home, requires 24-hour supervision. Patient gonsalo gardner transferred to shelter [facility] for continued rehab. 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 Pt started on Aspirin and to continue atorvastatin and to follow up outpatient with neurology for long-term monitoring. Folate deficiency, patient started on folic acid supplement 1 g daily Dementia. Continue Fall precautions and provide Safe and supportive care with redirection as needed. Continue medication regimen with Namenda Abnormal EKG. Previous reports of frequent sinus pauses reported to be seen on the monitor in the emergency department were believed to be secondary to frequent PACs resulting in an irregular rhythm. No further episodes of sinus pauses noted. Hypomagnesemia, resolved Hypertension. Monitor vital signs and continue daily medication regimen with lisinopril. Hyperlipidemia. Continue daily medication regimen with atorvastatin. Hospital Course: Patient is a very pleasant 86-year-old male with a past medical history of advanced dementia, hypertension, abdominal aortic aneurysm status post repair, and BPH. Patient presented to the ER with a chief complaint of increasing weakness and frequent falls at home over the past few months and worsening over the past 4 weeks. He underwent full evaluation in the emergency department. CT head and cervical spine negative for acute intercranial process revealing a focus of celis/white matter loss differentiation suspicious for microinfarct along with moderate multilevel degenerative disc disease. EKG showing sinus rhythm at 71 bpm with PACs. Repeat EKG showing sinus rhythm at 69 bpm with PACs and occasional PVCs. Labs reviewed. CBC unremarkable with the exception of normocytic normochromic anemia with hemoglobin of 11.3. BMP revealing mild prerenal azotemia with BUN of 23 otherwise normal findings. Magnesium was found to be significantly low at 1.4 and replaced. Troponin less than 0.012. In the emergency department, ER physician reported patient having multiple episodes of sinus pauses noted on telemetry. Patient was then admitted under our services with consultation to cardiology and neurology. Cardiology their our office. Neurology evaluated and reviewed CT findings of small area of encephalomalacia involving left frontal region. This small area of encephalomalacia involving the left frontal region of brain seen on CT is believed to be a subacute vs chronic CVA or remote concussion resulting from frequent falls and head trauma. Pt started on Aspirin and to continue atorvastatin. Carotid Dopplers completed revealing moderate atherosclerotic changes without significant velocity increases or stenosis reported. Lipid profile unremarkable with the exception of low HDL of 38.50. Folate 3.10 and patient started on folic acid supplements 1 g daily. Case management had long discussion with patient's and daughter and family requesting SNF placement. Patient is medically stable at this time and arrangements have been made for patient to go to [facility]. Ca lled and discussed transfer to SNF with patient's , Magali at this time whom continues to be in agreement with transfer of her and all questions answered at this time. Patient is medically stable and being transferred to shelter facility this evening. Physical exam: Vital signs reviewed and stable. General: Nontoxic, no distress and appears stated age. Derm: Skin warm and dry, normal coloration for ethnicity. Head: Atraumatic, normocephalic and symmetric. Eyes: EOMs intact, no lid lag, and anicteric sclera Mouth: no lip lesions, mucus membranes moist Cardiovascular: irregular rhythm, normal S1S2, systolic murmur, positive posterior tibial pulses bilaterally, and cap refill < 2 seconds. Lungs: Respirations even, regular, and unlabored on room air. Lungs CTA bilaterally, no rhonchi, no rales, no wheezing, and no accessory muscle usage. Abdominal: soft, nontender to palpation, no guarding, no appreciable organomega ly Ext: ROM intact. No gross muscle atrophy, no edema, no contractures. Neuro: Speech clear, face symmetrical and CN II-XII grossly intact with no noted focal neuro deficits Psych: Alert and oriented to person, confused to place, time and situation. Appropriate and pleasant affect. Calm and cooperative and redirectable. A total of 37 minutes of time were spent preparing this complex discharge s tosin. Pt was discharged on 04/13/22 at 4:14 PM. Patient Condition at Discharge: Stable Plan - Discharge Summary Discharge Rx Participant: No New Discharge Prescriptions: New Aspirin 81 mg PO DAILY tab Pantoprazole [Protonix] 40 mg PO AC-BRKFST tab Folic Acid 1 mg PO DAILY tab Continue Simvastatin [Zocor] 40 mg PO DAILY lisinopriL [Zestril] 5 mg PO BID Memantine [Namenda] 10 mg PO BID Finasteride [Proscar] 5 mg PO DAILY Discontinued Omeprazole 20 mg PO DAILY QUEtiapine [SEROquel] 50 mg PO HS Discharge Medication List Simvastatin [Zocor] 40 mg PO DAILY 05/19/17 [History] lisinopriL [Zestril] 5 mg PO BID 05/19/17 [History] Finasteride [Proscar] 5 mg PO DAILY 03/27/22 [History] Memantine [Namenda] 10 mg PO BID 03/27/22 [History] Aspirin 81 mg PO DAILY tab 04/13/22 [Rx] Folic Acid 1 mg PO DAILY tab 04/13/22 [Rx] Pantoprazole [Protonix] 40 mg PO AC-BRKFST tab 04/13/22 [Rx] Follow up Appointment(s)/Referral(s): Hannah Wick MD [REFERRING] - 1 Week (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 Pt started on Aspirin and to continue atorvastatin) Sandra Herrera MD [Primary Care Provider] - 1-2 days Davey Gilliam MD [STAFF PHYSICIAN] - 1 Week Activity/Diet/Wound Care/Special Instructions: Activity: As tolerated. Fall precautions. Patient requires 24-hour supervision and redirection as needed. Diet: Heart healthy and carb consistent diet. Avoid salts, or foods with hidden salts such as canned or boxed foods and frozen dinners. Extra salt makes your heart work harder and traps the fluid in your body for longer. Special Instructions: Take all of your medications as directed and remember to keep all of your doctor's appointments and follow-up as needed. Thank you for allowing us to participate in your care, it was truly a pleasure having you for our patient!!! Discharge Disposition: TRANSFER TO SNF/ECF
== END 2022-04-13 17:05 | DRG 948 ==
LOC: EC 15:17 → 3SCARD 20:11 → 5NMEDONC 04-12 17:48
PROVIDERS: ADMIT Internal Medicine; ATTEND Internal Medicine
DX: R53.1 Weakness (principal); F03.90 Unspecified dementia, unspecified severity, without behavioral disturbance, psychotic disturbance, mood disturbance, and anxiety; G93.89 Other specified disorders of brain; D64.9 Anemia, unspecified; E78.5 Hyperlipidemia, unspecified; I35.0 Nonrheumatic aortic (valve) stenosis; I45.10 Unspecified right bundle-branch block; E83.42 Hypomagnesemia; I10 Essential (primary) hypertension; G47.30 Sleep apnea, unspecified; E53.8 Deficiency of other specified B group vitamins; N40.0 Benign prostatic hyperplasia without lower urinary tract symptoms; R00.1 Bradycardia, unspecified; R53.81 Other malaise; R29.6 Repeated falls; Z79.899 Other long term (current) drug therapy; Z86.16 Personal history of COVID-19; Z91.81 History of falling; Z90.49 Acquired absence of other specified parts of digestive tract; Z90.79 Acquired absence of other genital organ(s); Z85.038 Personal history of other malignant neoplasm of large intestine; Z87.19 Personal history of other diseases of the digestive system; Z87.438 Personal history of other diseases of male genital organs; Z86.79 Personal history of other diseases of the circulatory system; Z98.890 Other specified postprocedural states; Z82.3 Family history of stroke
CPT/HCPCS: 36415; 70450; 72125; 80053; 80061; 82607; 82746; 83036; 83735; 84100; 84443; 84484; 85025; 85730; 93005; 93306; 93880; 96365; 96366; 99285